=== PATIENT | female | born 1930 | race Caucasian/White ===

== ENCOUNTER 2017-05-16 21:05 | Inpatient (IN) ==
--- NOTE | 2017-05-16 21:52 | Emergency Department Report ---
GI Bleed HPI - General Chief complaint: GI Bleed Stated complaint: Rectal bleeding Time Seen by Provider: 05/16/17 21:21 Source: patient Mode of arrival: ambulatory Limitations: no limitations - History of Present Illness HPI Narrative: Pt presents with a c/o rectal bleeding for the last few hours. She reports a history of diverticulitis which she states causes her to have self limiting diarrhea about once a month. This evening shortly after supper pt developed diarrhea and after about 2 episodes noted blood in her stool and had a self limiting episode of low abd cramping. Pt states her stools then became nothing but bright red blood. She then had to put on an attends as the bleeding became spontaneous without warning. Pt reports 6 stools of nothing but blood MD complaint: blood on toilet paper, blood streaked stool, gross hematochezia Onset (ago): hour(s) Consistency: constant Severity: moderate Relieving factors: none Exacerbating factors: none Associated symptoms: abdominal pain Treatments Prior to Arrival: none - Related Data Home Medications Medication Instructions Recorded Confirmed Diclofenac Sodium 75 mg PO BID 05/16/17 05/16/17 Gabapentin [Neurontin] 1 tab PO BID 05/16/17 05/16/17 Levothyroxine Sodium 1 tab PO DAILY 05/16/17 05/16/17 Losartan [Cozaar] 1 tab PO DAILY 05/16/17 05/16/17 Omeprazole [Prilosec] 1 tab PO DAILY 05/16/17 05/16/17 Simvastatin [Zocor] 1 tab PO DAILY 05/16/17 05/16/17 Allergies Allergy/AdvReac Type Severity Reaction Status Date / Time Penicillins Allergy Verified 05/16/17 21:29 Sulfa (Sulfonamide Allergy Verified 05/16/17 21:29 Antibiotics) Review of Systems All systems: reviewed and negative except as stated Constitutional: Denies: fever, chills, weakness Cardiovascular: Reports: edema. Denies: chest pain, palpitations Respiratory: Denies: cough Gastrointestinal: Reports: abdominal pain, diarrhea. Denies: nausea, vomiting Genitourinary: Denies: urgency Musculoskeletal: Denies: back pain Neurological: Denies: headache, weakness Psychiatric: Denies: anxiety PFSH Patient Stated Medical History Hypertension Yes Gastroesophageal Reflux Yes Disease Other GI Yes: diverticulitis Osteoarthritis Yes Physical Exam - Limitations Limitations: no limitations - General General appearance: alert, in no apparent distress - Normal Exams: Neck:: Full range of motion, without adenopathy Chest/Respirations:: Clear all fernández, with good airflow Cardiovascular:: Regular rate and rhythm, without murmur or gallop Abdomen:: Bowel sounds positive, soft, non-tender, non-distended Musculoskeletal:: No tenderness, or deformity noted, good range of motion, all extremities Integumentary:: No rashes, hives, or bruising noted Neurological:: Patient is alert, and oriented Psychiatric:: Patient exhibits, appropriate attention, emotion and affect Course Vital Signs Temperature 98.2 F 05/16/17 21:11 Pulse Rate 116 H 05/16/17 21:11 Respiratory Rate 20 05/16/17 21:11 Blood Pressure 170/87 H 05/16/17 21:11 Pulse Oximetry 99 05/16/17 21:11 Temperature 98.2 F 05/16/17 21:11 Pulse Rate 84 05/16/17 23:45 Respiratory Rate 18 05/16/17 23:45 Blood Pressure 145/65 H 05/16/17 23:45 Pulse Oximetry 94 05/16/17 23:45 GI Bleed - MDM Narrative Medical decision making narrative: Pt has obvious rach rectal bleeding. Labs and CT reviewed. Assessment and diagnostic findings discussed with Dr Mcallister and then Dr Toussaint for admission. All findings discussed with pt and family, questions answered. Pt admitted inpatient for acute GI bleed - Differential Diagnosis Likely: hemorrhoids, gastritis, Upper gastrointestinal hemorrhage, Lower gastrointestinal hemorrhage - Lab Data Attestation: I reviewed the patient's lab results. Result diagrams: 05/16/17 21:56 05/16/17 21:56 Lab Results 05/16/17 05/16/17 05/16/17 Range/Units 21:56 21:56 22:57 WBC 10.3 (4.5-11.0) T/MM3 RBC 3.75 L (4.00-5.20) M/MM3 Hgb 11.0 L (12-16) GM/DL Hct 34.5 L (36-46) % MCV 92.0 (80-100) UM3 MCH 29.3 (26-34) UUG MCHC 31.9 (31-37) GM/DL RDW Std Deviation 53.8 H (36.9-50.2) FL Plt Count 380 (130-400) T/MM3 MPV 9.1 L (9.4-12.4) UM3 Immature Gran % (Auto) 0.8 H (0.0-0.5) % Neut % (Auto) 66.1 H (33-66) % Lymph % (Auto) 25.0 (23-45) % Dickey % (Auto) 6.5 (0-9.0) % Eos % (Auto) 1.2 (0-4) % Baso % (Auto) 0.4 (0-2) % Neut # (Auto) 6.8 (1.8-7.7) T/MM3 Lymph # (Auto) 2.6 (1-4.8) T/MM3 Dickey # (Auto) 0.7 (0-0.8) T/MM3 Eos # (Auto) 0.1 (0-0.5) T/MM3 Baso # (Auto) 0.0 (0-0.2) T/MM3 Abs Immat Gran (auto) 0.08 H (0.00-0.03) T/MM3 Turbidity < 20 (0-20) Sodium 141 (134-144) MEQ/L Potassium 4.0 (3.6-5) MEQ/L Chloride 107 (98-107) MEQ/L Carbon Dioxide 23 (22-30) MEQ/L Anion Gap 11 (5-15) MEQ/L BUN 13.0 (7-17) MG/DL Creatinine 0.7 (0.7-1.2) MG/DL GFR Calculation 80 BUN/Creatinine Ratio 19 (6-26) RATIO Glucose 169 H (65-110) MG/DL Calculated Osmolality 275 (261-280) MOSM/KG Calcium 9.3 (8.4-10.2) MG/DL Total Bilirubin 0.20 (0.20-1.30) MG/DL Conjugated Bilirubin 0.00 (0.00-0.30) MG/DL Unconjugated Bilirubin 0.00 (0.00-1.1) MG/DL Icterus Index < 2 (0-7) AST 24 (14-36) U/L ALT 35 (9-52) U/L Alkaline Phosphatase 69 (38-126) U/L Total Protein 7.1 (6.3-8.2) G/DL Albumin 4.1 (3.5-5.0) G/DL Globulin 3.0 (2.4-3.6) G/DL Albumin/Globulin Ratio 1.4 (1.1-2.2) RATIO Specimen Hemolysis < 15 (0-25) Stool Occult Blood Positive A - Radiology Data Attestation: I reviewed the patient's radiology results. (Ct results per V Rad) Disposition Clinical Impression: GI bleed Qualifiers: GI bleed type/associated pathology: diverticulosis Qualified Code(s): K57.91 - Diverticulosis of intestine, part unspecified, without perforation or abscess with bleeding Disposition: 02 To [facility] [place] Acute Care Condition: Improved Time of Disposition: 00:52 - Seen By: midlevel
[2017-05-16] MEDS ORDERED: NS 100 ML ONE (22:09)
[2017-05-16] MEDS ORDERED: SALINE FLUSH 10ml SYRINGE ONE (22:09)
[2017-05-16] MEDS ORDERED: IOHEXOL 300mg/ml 100ml INJECTION ONE (22:09)
--- NOTE | 2017-05-17 01:02 | History & Physical Report ---
<Krishna Toussaint - Last Filed: 05/17/17 02:15> History of Present Illness Date: 05/17/17 Chief complaint: BRBPR, diarrhea HPI: Ms Boyd is an 86 y/o w/ h/o hypothyroidism, GERD, HLD and diverticular disease with montly bouts of self-limited "diverticulitis" who presents to ED at [facility] [place] w/ chief concern of bloody diarrhea that started last night after dinner. Patient states that she was feeling "fine" yesterday however after dinner she had some slight lower abdominal pain and then some loose stools. She states she thought this was consistent w/ what she has intermittently which normally resolves spontaneously however this time she continued to have diarrhea and then noted blood in the stool and then had a primarily bloody stools from that point on. Her abdominal pain resolved, and she denies n/v and denies f/c/s. She denies cough, soa, dyspnea, TURNER, sore throat and chest pain. She states that she has no prior h/o GI bleeding so she decided to come to the ER. In the ED, patient had one episode of blood in her stool, and per ER provider UYEN did not reveal internal rectal/external hemorrhoids. CT scan showed diverticulosis but not diverticulitis and showed no other acute process per prelim report. Patient's hgb was 11 and her WBC was 10.3. She was starte on IVFs and Dr. Mcallister was contacted and he requested the patient be admitted to the hospitalist service and he will consult in the AM. Patient admitted to the Hospitalist service for further evaluation and management. Review of Systems All systems PM: 10-point ROS was reviewed, no additional remarkable complaints except (as noted in the HPI) PFSH Past medical hx: Hypothyroidism HLD GERD Diverticular disease w/ intermittent bouts of "diverticulitis" that resolve spontaneously Colonoscopy in [place] about 5 years ago OA HTN Family History: Patient's mother secondary to complications of Colon Ca at age 75. Patient's sister 92 and healthy. - Social History Smoking status: Never smoker Substance use type: does not use Alcohol intake: never Medications Home Medications Medication Instructions Recorded Confirmed Type Diclofenac Sodium 75 mg PO BID 05/16/17 05/16/17 History Gabapentin [Neurontin] 1 tab PO BID 05/16/17 05/16/17 History Levothyroxine Sodium 1 tab PO DAILY 05/16/17 05/16/17 History Losartan [Cozaar] 1 tab PO DAILY 05/16/17 05/16/17 History Omeprazole [Prilosec] 1 tab PO DAILY 05/16/17 05/16/17 History Simvastatin [Zocor] 1 tab PO DAILY 05/16/17 05/16/17 History Allergies Allergy/AdvReac Type Severity Reaction Status Date / Time Penicillins Allergy Verified 05/16/17 21:29 Sulfa (Sulfonamide Allergy Verified 05/16/17 21:29 Antibiotics) Exam Vital Signs: Temperature 98.2 F 05/16/17 21:11 Pulse Rate 84 05/16/17 23:45 Respiratory Rate 18 05/16/17 23:45 Blood Pressure 145/65 H 05/16/17 23:45 Pulse Oximetry 94 05/16/17 23:45 Telemetry Rhythm: Sinus Rhythm - Constitutional Present: no acute distress, well nourished, well developed - Routine HEENT Exam Head: Present: normocephalic, atraumatic Eye: Present: EOMI, PERRL. Absent: conjunctival icterus, scleral injection ENT: Present: mucous membranes moist - Routine Neck Exam Present: supple, full ROM. Absent: JVD - Routine Respiratory Exam Present: CTA bilaterally. Absent: accessory muscle use, dyspnea, respiratory distress - Routine Cardiovascular Exam Present: RRR - Routine Abdominal Exam Present: soft, normoactive bowel sounds, non distended. Absent: tenderness - Routine Rectal Exam Patient deferred: visual exam - Routine Skin Exam Present: intact, dry. Absent: pallor, mottling, petechiae - Routine Neurological Exam Present: alert, oriented X3, CN II-XII intact. Absent: sensory deficit, motor deficit - Routine Psychiatric Exam Present: normal affect, normal thought process Results - Labs CBC & Chem 7: 05/16/17 21:56 05/16/17 21:56 Assessment and Plan DVT Prophylaxis: SCD's GI Prophylaxis: Protonix Resuscitation Status: Full Code Assessment and Plan: Assessment: 1) Acute Lower GI bleed w/ diarrhea w/ h/o diverticular disease 2) HTN 3) Hypothyroidism 4) HLD 5) GERD Plan: Admit to Hospitalist service on Surgical unit Consult Dr. Mcallister Repeat labs - CBC, renal panel at 0400 today and monitor serial Hgb UA pending NPO except sips/ice chips sparingly IVFs that of NS at 100 cc / hour Hold losartan and monitor BP, may need to restart Protonix IV 40mg q 24 hours (hold po Prilosec) Hold Diclofenac and simvastatin SCDs Supportive Care I discussed the plan of care w/ the patient and the patient verbalized understanding and agreement. Hospital Course Summary Disclaimer: The visit summary below is not to be considered part of the above Progress Note. <Pippa Durant - Last Filed: 05/17/17 12:26> History of Present Illness Date: 05/17/17 Exam Vital Signs: Temperature 97.3 F 05/17/17 07:18 Pulse Rate 106 H 05/17/17 10:42 Respiratory Rate 17 05/17/17 10:23 Blood Pressure 162/87 H 05/17/17 10:42 Pulse Oximetry 95 05/17/17 10:23 Height/Weight/BMI: Height 1.63 m Weight 65 kg Body Mass Index 24.6 Results - Labs CBC & Chem 7: 05/17/17 09:25 05/17/17 04:46 Assessment and Plan (1) GI bleed Problem details: Lower-likely diverticular Current visit: Yes Status: Acute GI Prophylaxis: Protonix Assessment and Plan: Dr. Toussaint's note reviewed. Mrs. Boyd interviewed and examined. CC: Rectal bleeding HPI: Ms Boyd is an 86 y/o female who presented to ED at [facility] w/ chief concern of bloody diarrhea that started last night after dinner yesterday evening. Patient states that she was feeling "fine" yesterday however after dinner she had some slight lower abdominal cramping pain and then some loose stools. She states she thought this was consistent w/ what she has intermittently which normally resolves spontaneously however this time she continued to have diarrhea and then noted bright red blood in the stool and then had a primarily bloody stools from that point on. She reports having 2 large bloody stools followed by 3-4 small stools before presenting to the emergency room. Her abdominal pain resolved, and she denies n/v and denies f/c/s. She denies cough , dyspnea, reflux, chest pain, or lightheadedness. She states that she has no prior h/o GI bleeding so she decided to come to the ER. In the ED, patient had one episode of blood in her stool, and per ER provider rectal exam did not reveal internal rectal/external hemorrhoids. CT scan showed diverticulosis but not diverticulitis and showed no other acute process per prelim report. Patient's hgb was 11 and her WBC was 10.3. She was started on IVFs and Dr. Mcallister was contacted and he requested the patient be admitted to the hospitalist service and he will consult in the AM. Last episode of bleeding was at 7:30 yesterday evening. Patient reports her last colonoscopy was approximate 5 years ago while she lived in [place] and she is not aware of any abnormalities but was told to repeat the colonoscopy in 3-4 years. PH/SH/FH: agree with that recorded above. Past surgeries include tonsillectomy, appendectomy, bilateral tubal ligation, left shoulder ORIF. Patient's primary care physician is Dr. Elgin Schaeffer, she would like her daughter and son to be alternate decision makers, and is a full code. ROS: 10 point review essentially negative other than episodes of diarrhea every 1-2 months and to past episodes of diverticulitis treated with oral antibiotics. Patient reports frequent UTIs but no current symptoms and arthritis primarily affecting the right knee which may require replacement in the near future. EXAM: General-NAD, alert, fluent speech, 162/87 standing, 154/67 supine; pulse 112 standing, 96 supine HEENT-PERRL, EOMI without nystagmus, conjunctiva mildly injected, sclera anicteric, conjugate gaze, facial structures symmetric, oropharynx clear, neck supple and without adenopathy Lungs-respirations nonlabored, good airflow, breath sounds clear Cardiac-regular cardiac rhythm, S1-S2, low-grade tachycardia Abd-soft, nontender, diminished bowel sounds Ext-without edema, mild soft tissue swelling at the right knee without erythema or warmth Skin-without rash or evidence of wounds Neuro-cranial nerves 3-12 intact, sensation intact to light touch 4 extremities , MAEW with mild proximal weakness Psych-calm, cooperative, oriented 3 DATA: Admission hemoglobin 11.0-dropped to 9.2 on follow-up 2, electrolytes/ creatinine/liver enzymes unremarkable. CT abdomen/pelvis reviewed by myself demonstrating surgical clips in the right axilla, gallstones without acute cholecystitis, diverticulosis without diverticulitis A/P: Acute lower GI bleed, likely diverticular Family history colon cancer Diverticulosis Blood loss anemia GERD Osteoarthritis Hypertension Hypothyroidism Hyperlipidemia Although patient reports normal colonoscopy 5 years ago she was advised to have it repeated in 3-4 years raising question of some abnormality that was identified. She clearly has diverticulosis and bleeding described as compatible with a diverticular bleed. Continue IV fluids and supportive care with serial hemoglobins. No upper symptoms described. Resume oral omeprazole. Discussed with Dr. Mcallister-may proceed with colonoscopy tomorrow. Clear liquids initiated. Type and screen to be obtained in the event transfusion becomes needed. Home medications resumed minus nonsteroidal and antihypertensive until hemodynamic stability clearly demonstrated. Hospital Course Summary Disclaimer: The visit summary below is not to be considered part of the above Progress Note.
[2017-05-17] MEDS ORDERED: PANTOPRAZOLE 40 MG INJECTION IVP SCH (01:18)
[2017-05-17 01:27] VITALS: BMI 24.6
[2017-05-17] MEDS: NS 1,000 ML IV SCH ×3 (02:04→22:47)
[2017-05-17] MEDS: GABAPENTIN 100 MG CAPSULE PO SCH ×2 (08:41→22:21)
[2017-05-17] MEDS: LEVOTHYROXINE 100 MCG TABLET PO SCH (08:41)
--- NOTE | 2017-05-17 10:06 | CT Scan Report ---
EXAM: CT abdomen pelvis w con DATE: 05/16/2017 12:00 AM ENCOUNTER: Initial INDICATION: hx diverticulitis, GI bleed COMPARISON: None available. TECHNIQUE: CT of the abdomen and pelvis with IV contrast. The patient received 89.3 mL of Omnipaque 300 without complication. Coronal and sagittal reformatted images were performed. The current CT scan was performed using radiation dose-reduction techniques. FINDINGS: Lower Chest: Mild atelectasis/scarring within the visualized portions of the lower lungs. No focal airspace disease. The heart is normal in size without pericardial effusion. Coronary arterial and thoracic aortic atherosclerotic calcifications. Postoperative changes of the right breast and right axillary lymph node dissection. Abdomen: No intraperitoneal free air. No intra-abdominal free fluid or fluid collections. No lymphadenopathy. Liver: The liver enhances homogeneously without focal masses. Gallbladder and biliary: Numerous stones within the gallbladder which appears otherwise normal. No biliary ductal dilatation. Spleen: The spleen appears normal. Pancreas: The pancreas demonstrates homogeneous attenuation. Adrenal glands: The adrenal glands are normal in size and attenuation. Kidneys/ureters: The kidneys appear normal. The ureters are normal in course and caliber. GI tract: Small hiatal hernia. The stomach appears otherwise normal. Small bowel loops are normal in caliber without evidence of obstruction. Colonic diverticulosis without associated inflammatory changes to suggest acute diverticulitis. Moderate colonic stool. The appendix is surgically absent by report. Vascular structures: The aorta is normal in course and caliber. The mesenteric arterial and venous structures appear patent. Pelvis: No pelvic free fluid. No pelvic lymphadenopathy. Calcified pelvic phleboliths. Bladder: The bladder appears normal. Genital system: The uterus and ovaries appear grossly normal. Skeletal structures and soft tissues: No acute osseous or soft tissue abnormality identified. Degenerative spondylosis of the visualized spine. IMPRESSION: 1. Colonic diverticulosis without associated inflammatory changes to suggest acute diverticulitis. 2. Moderate colonic stool raising consideration for constipation. 3. Cholelithiasis without imaging evidence of acute cholecystitis. The above report concurs with the preliminary report provided by Monaeo at 11:08 PM. .
--- NOTE | 2017-05-17 17:04 | General Surgery Consult Note ---
Consult date: 05/17/17 Attending Physician: Pippa Durant MD [facility] Medical History Updates: Hypothyroidism. Hyperlipidemia. GERD. Diverticular disease w/ intermittent bouts of "diverticulitis" that resolve spontaneously. OA. HTN. UTI - 04/24/2017 Surgical History: * Colonoscopy with polypectomy - 06/17/[address] Ephraim Polo. 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 * Colonoscopy - ~2005 in [place], [place]. * Left shoulder ORIF. * Tubal ligation. * Open right ovarian repair and incidental appendectomy. * Tonsillectomy Family History Updates: Mother: Colon cancer - age 75. 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 Medications Home Medications Medication Instructions Recorded Confirmed Type Diclofenac Sodium 75 mg PO BID 05/16/17 05/16/17 History Gabapentin [Neurontin] 1 tab PO BID 05/16/17 05/16/17 History Levothyroxine Sodium 1 tab PO DAILY 05/16/17 05/16/17 History Losartan [Cozaar] 1 tab PO DAILY 05/16/17 05/16/17 History Omeprazole [Prilosec] 1 tab PO DAILY 05/16/17 05/16/17 History Simvastatin [Zocor] 1 tab PO DAILY 05/16/17 05/16/17 History Allergies Allergy/AdvReac Type Severity Reaction Status Date / Time Penicillins Allergy Verified 05/16/17 21:29 Sulfa (Sulfonamide Allergy Verified 05/16/17 21:29 Antibiotics) Review of Systems 10-point ROS: negative except for HPI and the following: - Gastrointestinal Gastrointestinal: Present: diarrhea (every 3-4 weeks), blood in stools - Musculoskeletal Musculoskeletal: Present: joint pain (right knee, left shoulder) - Endocrine Endocrine: Present: thyroid problems - Vital Signs Last Vital Signs Temp 97.4 F 05/17/17 16:08 Pulse 75 05/17/17 16:08 Resp 18 05/17/17 16:08 BP 172/72 H 05/17/17 16:08 Pulse Ox 99 05/17/17 16:08 - Laboratory Result Diagrams: 05/17/17 15:47 05/17/17 04:46 Laboratory Tests 05/16/17 05/17/17 05/17/17 21:56 04:46 09:25 Hgb 11.0 L 9.2 L D 9.2 L 05/17/17 15:47 Hgb 8.9 L General Surgery Results - Results Labs: 05/17/17 15:47 05/17/17 04:46 Plan: PATIENT EDUCATION The rationale, details, risks, benefits, and expected pre-procedural and post- procedural course were discussed with the patient. The discussion included but was not limited to bleeding, perforation requiring surgical repair, missed lesions, aspiration, and complications from anesthesia. The risks of hemorrhoid banding was also discussed including delayed bleeding and infection. Hospital Course Summary Disclaimer: The visit summary below is not to be considered part of the above Progress Note.
[2017-05-17] MEDS ORDERED: Bisacodyl EC TAB 5 MG TABLET PO ONE (17:33)
--- NOTE | 2017-05-17 18:18 | Consultation ---
DATE OF CONSULTATION 05/17/2017 CONSULTING PHYSICIAN Mihcael Mcallister MD REQUESTING PHYSICIAN Dr. Krishna Toussaint REASON FOR CONSULTATION Lower GI bleed. IMPRESSION 1. Lower GI bleed of uncertain etiology. This could possibly be due to diverticular bleeding versus hemorrhoids. 2. Hypertension. 3. Hypothyroidism. 4. Hyperlipidemia. 5. Gastroesophageal reflux disease. RECOMMENDATIONS 1. Continue to follow serial hemoglobins. 2. INR has been ordered for the morning. 3. I did discuss colonoscopy with Donna and her daughter. I also mentioned the possibility of anoscopy with possible hemorrhoid banding. They did agree that colonoscopy and possible hemorrhoid banding would be appropriate. 4. Bowel prep this evening. 5. N.P.O. at midnight. HISTORY OF PRESENT ILLNESS Donna is an 86-year-old female patient of Dr. Deonte Schaeffer who is a resident of [facility] in the [facility]. Around 7:30 last evening she had her third bowel movement of the day. She thought she heard a popping sound and then noticed a gush of blood. She went back to the bathroom shortly afterwards and passed more blood. She had three of four more times that she passed smaller amounts of blood that evening. She did present to the emergency department and had some ongoing bleeding in the emergency department. She did have a bowel movement this afternoon which showed a slight amount of blood mixed with the stool. She has not had any other bleeding today. She does report an increase in flatus but that has been better since her bowel movement this afternoon. She said that she was having 1-2 out of 10 in severity cramping across her lower abdomen. This has also improved. PAST MEDICAL HISTORY, PAST SURGICAL HISTORY, ALLERGIES, MEDICATIONS, SOCIAL HISTORY, FAMILY HISTORY, REVIEW OF SYSTEMS, LABORATORY DATA See electronic consultation note. PHYSICAL EXAMINATION VITAL SIGNS: See electronic consultation note. GENERAL: The patient is awake, alert, in no acute distress. HEENT: Sclerae clear. Extraocular muscles intact. NECK: Supple with a midline trachea. No lymphadenopathy or thyromegaly are noted. HEART: Regular rate and rhythm. LUNGS: Clear to auscultation bilaterally. ABDOMEN: Soft, nontender, nondistended. There are no masses, fluid, organomegaly, guarding or rebound noted. EXTREMITIES: No clubbing, cyanosis or edema. NEUROLOGIC: Cranial nerves II-XII are grossly intact. PSYCHIATRIC: Normal mood and affect. Thank you for allowing me to participate in [facility]'s care. CHRISTIANO
[2017-05-17] MEDS ORDERED: POLYETHYL. GLYCOL 3350 BOTTLE 238 GM PO ONE (19:00)
[2017-05-17] MEDS ORDERED: ONDANSETRON 4 MG/2 ML INJECTION IVP PRN (21:27)
[2017-05-17] MEDS: SIMVASTATIN 40 MG TABLET PO SCH (22:22)
[2017-05-18] MEDS: OMEPRAZOLE 20 MG CAPSULE PO SCH (05:32)
[2017-05-18] MEDS: LEVOTHYROXINE 100 MCG TABLET PO SCH (05:32)
[2017-05-18] MEDS: FLEET PHOSPHO - SODA ENEMA 133ml PR PRN ×3 (06:09→07:12)
--- NOTE | 2017-05-18 06:56 | Anesthesia Preoperative Report ---
Anesthesia Preoperative Record - Date and Time Date: 05/18/17 Preoperative Diagnosis: Lower GI Bleed Proposed Procedure: GI Bleed NPO Since Date: 05/18/17 NPO Since Time: 00:00 Allergies/Adverse Reactions: Allergies Allergy/AdvReac Type Severity Reaction Status Date / Time Penicillins Allergy Verified 05/16/17 21:29 Sulfa (Sulfonamide Allergy Verified 05/16/17 21:29 Antibiotics) - Vital Signs Vital Signs: Temperature 97.8 F 05/18/17 06:51 Pulse Rate 97 05/18/17 06:51 Respiratory Rate 19 05/18/17 06:51 Blood Pressure 179/75 H 05/18/17 06:51 Pulse Oximetry 97 05/18/17 06:51 Height and Weight: Height 5 ft 4 in Weight 65 kg Body Mass Index 24.6 - Medications Inpatient Medications: Current Medications Gabapentin (Neurontin) 100 mg PO BID [facility] Last Admin: 05/17/17 22:21 Dose: Not Given Sodium Chloride (Normal Saline) 1,000 mls @ 100 mls/hr IV .Q10H [facility] Last Infusion: 05/18/17 05:32 Dose: 100 mls/hr Levothyroxine Sodium (Synthroid) 100 mcg PO ACB [facility] Last Admin: 05/18/17 05:32 Dose: Not Given Omeprazole (Prilosec) 20 mg PO ACB [facility] Last Admin: 05/18/17 05:32 Dose: Not Given Ondansetron HCl (Zofran) 4 mg IVP Q6H PRN PRN Reason: Nausea &/or vomiting Last Admin: 05/17/17 21:30 Dose: 4 mg Simvastatin (Zocor) 40 mg PO HS [facility] Last Admin: 05/17/17 22:22 Dose: Not Given Sodium Phosphate (Fleet Enema) 1 enema [place] PRN PRN Last Admin: 05/18/17 06:52 Dose: 1 enema Home Medications: Home Medications Medication Instructions Recorded Confirmed Type Diclofenac Sodium 75 mg PO BID 05/16/17 05/16/17 History Gabapentin [Neurontin] 1 tab PO BID 05/16/17 05/16/17 History Levothyroxine Sodium 1 tab PO DAILY 05/16/17 05/16/17 History Losartan [Cozaar] 1 tab PO DAILY 05/16/17 05/16/17 History Omeprazole [Prilosec] 1 tab PO DAILY 05/16/17 05/16/17 History Simvastatin [Zocor] 1 tab PO DAILY 05/16/17 05/16/17 History Is Patient on Beta Earl?: No - Medical History Respiratory: DENIES: Asthma, Bronchitis, Chronic Obstructive Pulmonary Disease (COPD), Dyspnea, Orthopnea, Pulmonary Embolism, Pneumonia, Upper Respiratory Infection, Pulmonary Edema, Sleep Apnea, Tuberculosis, Other Cardiovascular: Reports: Hypertension Gastrointestional: Reports: Gastroesophageal Reflux Disease (well controlled with meds), Gastrointestinal Bleeding (currently) Neuro/Musculoskeletal: Denies: HX.MS.OSAR, Back Problems, Cerebrovascular Accident, Depression, Headaches, Loss of Consciousness, Muscle Weakness, Neuromuscular Disorder, Paralysis, Paresthesia, Syncope, Seizures, Other Renal/Endocrine: Reports: Thyroid Disease (hypo) - Surgical History HEENT Surgeries: Reports: Tonsillectomy GI Surgery/Treatments: Reports: Appendectomy Musculoskeletal Surgery/Tx: Reports: Shoulder Arthroscopy Reproductive Surgery/Treatment: Reports: Tubal Ligation Anesthesia Reactions: None Hx Family Anesthesia Reaction: No History of Motion Sickness: No - Social History Smoking Status: Never smoker Substance Use Type: does not use Alcohol Intake Frequency: does not drink - Pertinent Findings Laboratory: CBC and BMP 05/18/17 04:28 05/18/17 04:28 BMP 05/18/17 04:28 Sodium 140 Potassium 3.4 L Chloride 110 H Carbon Dioxide 22 BUN 4.0 L D Creatinine 0.5 L Glucose 93 Calcium 8.6 Liver Function 05/18/17 Range/Units 04:28 Albumin 3.4 L (3.5-5.0) G/DL EKG: Sinus Rhythm EKG Ectopy: PAC - Physical Exam Respiratory Exam: Present: lungs clear, bilateral breath sounds equal Cardiovascular Exam: Present: regular rate and rhythm, no murmur - Airway Assessment Mallampati Score: III TMD: 2 Fingerbreadths Neck Extension: fair Overall Assessment: may be difficult intubation - ASA ASA Score: 2 - Plan Anesthesia: General TIVA - Discussion Discussion: Discussed risks/options/alternatives of anesthesia and questions answered. Patient consents. Nursing pain assessment noted. Present for Discussion: other (none) Attestation Statement: Prior to the delivery of any anesthetic medication, I examined the patient, developed the plan, obtained the patient's consent and discussed the risk and benefits of the procedure with the patient/guardian. - Additional Information Seen by Anesthesia: Yes
[2017-05-18] MEDS ORDERED: NS 1,000 ML IV SCH (07:15)
--- NOTE | 2017-05-18 08:07 | General Surgery Procedure Note ---
Date of Procedure: 05/18/17 Surgeon: Esvin Anesthesia: General TIVA ASA Score: 2 Postoperative Diagnosis: Severe sigmoid diverticulosis. Lower GI bleed - most likely diverticular in origin - no active bleeding. Possible mild sigmoid colitis. Mild internal hemorrhoids Procedure: Total colonoscopy with biopsies of sigmoid colon
[2017-05-18] MEDS ORDERED: PROPOFOL 500 MG/50 ML VIAL IV ONE (08:11)
--- NOTE | 2017-05-18 08:43 | Anesthesia Postoperative Note ---
- Date and Time Date: 05/18/17 Time: 08:40 - Status Patient Participated in Evaluation: Patient Participated in Person Vital Signs: Temperature 97.5 F 05/18/17 08:09 Pulse Rate 80 05/18/17 08:40 Respiratory Rate 21 05/18/17 08:40 Blood Pressure 125/60 05/18/17 08:40 Pulse Oximetry 95 05/18/17 08:40 Respiratory Function: Airway Patent, Regular Respirations Cardiovascular Function: Regular Pulse Mental Status: Alert and Oriented Pain Intensity: 0 Hydration: IV Infusing Complications During Recover: None Apparent - Follow-Up Instructions Instructions: Per Surgeon
[2017-05-18] MEDS: GABAPENTIN 100 MG CAPSULE PO SCH ×2 (11:01→21:24)
--- NOTE | 2017-05-18 11:23 | Progress Note ---
<Laura Bautista - Last Filed: 05/18/17 11:19> Subjective: Donna is seen today in follow up for her recent GI bleed and anemia. She is seen while resting in her room and reports that she is very tired since she hasn 't gotten much sleep in the past 2 days. She underwent colonoscopy this morning by Dr. Mcallister which revealed severe sigmoid diverticulosis and mild sigmoid colitis. She complains of rectal discomfort now which she believes is secondary to all her recent bowel movements and bowel prep. She denies any fevers, chills, chest pain, shortness of breath, abdominal pain or dysuria. She states she is tolerating clear liquid diet well and denies any nausea or vomiting. Review of medical records indicates that she has been hypertensive. She has a history of hypertension and her Losartan was placed on hold on admission. Labs today revealed new hypokalemia with potassium at 3.4. Slight decrease in hemoglobin today at 9.1 as compared to yesterday at 10.4. Objective Vital signs: Temperature 98.1 F 05/18/17 09:00 Pulse Rate 86 05/18/17 10:44 Respiratory Rate 21 05/18/17 09:15 Blood Pressure 152/68 H 05/18/17 10:44 Pulse Oximetry 96 05/18/17 10:15 Rhythm: Normal Sinus Rhythm Height/Weight/BMI: Height 5 ft 4 in Weight 144 lb 9.972 oz Body Mass Index 24.6 - Constitutional Present: no acute distress, well nourished, well developed, cooperative - Routine HEENT Exam Head: Present: normocephalic, atraumatic Eye: Present: PERRL. Absent: conjunctival icterus ENT: Present: mucous membranes moist, dentition normal - Routine Respiratory Exam Present: CTA bilaterally. Absent: rhonchi, stridor, wheezes - Routine Cardiovascular Exam Present: RRR, S1, S2 - Routine Abdominal Exam Present: soft, normoactive bowel sounds, non distended, non tender. Absent: guarding - Routine Extremities Exam Present: no edema, non tender, pulses intact - Routine Back/Spine/Pelvis Exam Back/Spine: Present: full ROM - Routine Musculoskeletal Exam Musculoskeletal: Present: moving extremities well - Routine Skin Exam Present: dry, warm. Absent: jaundice Comments: afebrile. - Routine Neurological Exam Present: alert, oriented X3, moving all extremities, vision grossly intact, normal speech. Absent: facial asymmetry - Routine Lymphatic Exam Lymphatic: Absent: lymphedema - Routine Psychiatric Exam Present: cooperative Results - Labs CBC & Chem 7: 05/18/17 04:28 05/18/17 04:28 - Impressions 05/18/17- Colonoscopy by Dr. Mcallister - severe sigmoid diverticulosis with mild sigmoid colitis; no active bleeding. Assessment and Plan (1) GI bleed Problem details: Lower-likely diverticular Current visit: Yes Status: Acute DVT Prophylaxis: SCD's GI Prophylaxis: other (Priolsec) Resuscitation Status: Full Code Assessment and Plan: Assessment Acute lower GI bleed, likely diverticular, acute. Family history colon cancer. Blood loss anemia, acute. Diverticulosis, chronic. GERD, chronic. Osteoarthritis, chronic. Hypertension, chronic. Hypothyroidism, chronic. Hyperlipidemia, chronic. Plan Patient underwent colonoscopy by Dr. Mcallister today (05/18/17) which revealed severe sigmoid diverticulosis with mild sigmoid colitis and no active bleeding. Diverticula most likely cause of lower GI bleed. Slight decrease in hemoglobin at 9.1 (as compared to 05/17 at 10.4). Patient is asymptomatic. Will continue to monitor blood counts and repeat CBC in AM. BMP revealed new hypokalemia (K 3.4). Will given KCl 40 mEq po now and recheck BMP in AM. Continue to monitor closely on telemetry. Encourage incentive spirometry for pulmonary toileting and SCDs for DVT prophylaxis. Hypertension noted with blood pressure 152/68. Losartan held on admission. Will resume home losartan and continue to monitor blood pressure closely. Continue to hold diclofenac in light of recent bleeding. Continue NS 50cc/hr as oral intake is still minimal. Patient is tolerating clear liquid diet. Rectal discomfort most likely secondary to bowel prep. A&D ointment as needed. Consider advancing as tolerated. Anticipate discharge in near future, hopefully 05/20/17. - Time spent with patient Time with patient PN: 35 minutes Hospital Course Summary Disclaimer: The visit summary below is not to be considered part of the above Progress Note. Hospital Course: 05/17/17-Admission. Dr. Toussaint's note reviewed. Mrs. Boyd interviewed and examined. CC: Rectal bleeding HPI: Ms Boyd is an 86 y/o female who presented to ED at [facility] w/ chief concern of bloody diarrhea that started last night after dinner yesterday evening. Patient states that she was feeling "fine" yesterday however after dinner she had some slight lower abdominal cramping pain and then some loose stools. She states she thought this was consistent w/ what she has intermittently which normally resolves spontaneously however this time she continued to have diarrhea and then noted bright red blood in the stool and then had a primarily bloody stools from that point on. She reports having 2 large bloody stools followed by 3-4 small stools before presenting to the emergency room. Her abdominal pain resolved, and she denies n/v and denies f/c/s. She denies cough , dyspnea, reflux, chest pain, or lightheadedness. She states that she has no prior h/o GI bleeding so she decided to come to the ER. In the ED, patient had one episode of blood in her stool, and per ER provider rectal exam did not reveal internal rectal/external hemorrhoids. CT scan showed diverticulosis but not diverticulitis and showed no other acute process per prelim report. Patient's hgb was 11 and her WBC was 10.3. She was started on IVFs and Dr. Mcallister was contacted and he requested the patient be admitted to the hospitalist service and he will consult in the AM. Last episode of bleeding was at 7:30 yesterday evening. Patient reports her last colonoscopy was approximate 5 years ago while she lived in [place] and she is not aware of any abnormalities but was told to repeat the colonoscopy in 3-4 years. PH/SH/FH: agree with that recorded above. Past surgeries include tonsillectomy, appendectomy, bilateral tubal ligation, left shoulder ORIF. Patient's primary care physician is Dr. Elgin Schaeffer, she would like her daughter and son to be alternate decision makers, and is a full code. ROS: 10 point review essentially negative other than episodes of diarrhea every 1-2 months and to past episodes of diverticulitis treated with oral antibiotics. Patient reports frequent UTIs but no current symptoms and arthritis primarily affecting the right knee which may require replacement in the near future. EXAM: General-NAD, alert, fluent speech, 162/87 standing, 154/67 supine; pulse 112 standing, 96 supine HEENT-PERRL, EOMI without nystagmus, conjunctiva mildly injected, sclera anicteric, conjugate gaze, facial structures symmetric, oropharynx clear, neck supple and without adenopathy Lungs-respirations nonlabored, good airflow, breath sounds clear Cardiac-regular cardiac rhythm, S1-S2, low-grade tachycardia Abd-soft, nontender, diminished bowel sounds Ext-without edema, mild soft tissue swelling at the right knee without erythema or warmth Skin-without rash or evidence of wounds Neuro-cranial nerves 3-12 intact, sensation intact to light touch 4 extremities , MAEW with mild proximal weakness Psych-calm, cooperative, oriented 3 DATA: Admission hemoglobin 11.0-dropped to 9.2 on follow-up 2, electrolytes/ creatinine/liver enzymes unremarkable. CT abdomen/pelvis reviewed by myself demonstrating surgical clips in the right axilla, gallstones without acute cholecystitis, diverticulosis without diverticulitis A/P: Acute lower GI bleed, likely diverticular Family history colon cancer Diverticulosis Blood loss anemia GERD Osteoarthritis Hypertension Hypothyroidism Hyperlipidemia Although patient reports normal colonoscopy 5 years ago she was advised to have it repeated in 3-4 years raising question of some abnormality that was identified. She clearly has diverticulosis and bleeding described as compatible with a diverticular bleed. Continue IV fluids and supportive care with serial hemoglobins. No upper symptoms described. Resume oral omeprazole. Discussed with Dr. Mcallister-may proceed with colonoscopy tomorrow. Clear liquids initiated. Type and screen to be obtained in the event transfusion becomes needed. Home medications resumed minus nonsteroidal and antihypertensive until hemodynamic stability clearly demonstrated. Plan Patient underwent colonoscopy by Dr. Mcallister today (05/18/17) which revealed severe sigmoid diverticulosis with mild sigmoid colitis and no active bleeding. Diverticula most likely cause of lower GI bleed. Slight decrease in hemoglobin at 9.1 (as compared to 05/17 at 10.4). Patient is asymptomatic. Will continue to monitor blood counts and repeat CBC in AM. BMP revealed new hypokalemia (K 3.4). Will given KCl 40 mEq po now and recheck BMP in AM. Continue to monitor closely on telemetry. Encourage incentive spirometry for pulmonary toileting and SCDs for DVT prophylaxis. Hypertension noted with blood pressure 152/68. Losartan held on admission. Will resume home losartan and continue to monitor blood pressure closely. Continue to hold diclofenac in light of recent bleeding. Continue NS 50cc/hr as oral intake is still minimal. Patient is tolerating clear liquid diet. Rectal discomfort most likely secondary to bowel prep. A&D ointment as needed. Consider advancing as tolerated. Anticipate discharge in near future, hopefully 05/20/17. <Pippa Durant - Last Filed: 05/18/17 15:30> Objective Vital signs: Temperature 98.1 F 05/18/17 09:00 Pulse Rate 73 05/18/17 13:55 Respiratory Rate 15 05/18/17 12:45 Blood Pressure 130/60 05/18/17 12:30 Pulse Oximetry 96 05/18/17 12:45 Height/Weight/BMI: Height 1.63 m Weight 65.6 kg Body Mass Index 24.6 Results - Labs CBC & Chem 7: 05/18/17 04:28 05/18/17 04:28 Assessment and Plan (1) GI bleed Problem details: Lower-likely diverticular Current visit: Yes Status: Acute Assessment and Plan: I have independently evaluated and examined this patient. I reviewed the chart, the patient's history, and the RECREATIONAL THERAPY TECHNICIAN/PA's documented findings as above. We discussed and formulated the assessment and plan as above with additions as below: Mrs. Boyd was resting comfortably when seen. She tolerated clear liquids at lunch and denied nausea, vomiting, or reflux. She's had no further rectal bleeding since the evening of admission. Hemoglobin has remained relatively stable. She denies lightheadedness. Respirations are nonlabored with clear breath sounds Cardiac rhythm regular without tachycardia Abdomen benign, no focal tenderness, bowel sounds present Results of colonoscopy discussed with Dr. Mcallister-advance diet as tolerated. Repeat hemoglobin this afternoon and in a.m. Provided remains hemodynamically stable and tolerates advancing to regular diet , anticipate discharge tomorrow. Hospital Course Summary Disclaimer: The visit summary below is not to be considered part of the above Progress Note.
[2017-05-18] MEDS: LOSARTAN 100 MG TABLET PO SCH (12:58)
--- NOTE | 2017-05-18 19:25 | Operative Note ---
DATE OF OPERATION 05/18/2017 SURGEON Michael Mcallister MD PREOPERATIVE DIAGNOSIS 1. Lower GI bleed. 2. Personal history of adenomatous colon polyp. 3. Family history of colon cancer in her mother. POSTOPERATIVE DIAGNOSES 1. Lower GI bleed likely secondary to diverticular bleeding - no active bleeding. 2. Severe sigmoid diverticulosis. 3. Possible mild sigmoid colitis. 4. Mild internal hemorrhoids. PROCEDURE Total colonoscopy with biopsies of the sigmoid colon for histology. ANESTHESIA TIVA ASA Class 2 INDICATIONS The patient is an 86-year-old female who was admitted to the hospital for lower GI bleeding. She had last had a colonoscopy in June 2011 that did include removal of a tubular adenoma. Given her history of the polyp and a family history of colon cancer in combination with her lower GI bleeding, a colonoscopy was recommended. FINDINGS The colon did show significant sigmoid diverticulosis without any definite evidence of diverticulitis. There was some possible mild colitis in the region of the sigmoid colon. There were mild internal hemorrhoids. There was some old blood within the region of the sigmoid colon and even one small clot but there was no evidence of active bleeding. There was no neoplasia or angiodysplasia noted. DESCRIPTION OF PROCEDURE After informed consent was obtained the patient was taken to the endoscopy suite and placed in a left lateral decubitus position. IV anesthesia was administered by the anesthesia team. A digital rectal exam was performed and was normal externally. No palpable masses were noted. The patient had received a MiraLAX/Dulcolax bowel prep the day prior. She also received some Fleet's enemas to help complete her bowel prep this morning. An Olympus video colonoscope with an AmplifEYE device was inserted and retroflexed to examine the distal rectum. There was mild internal hemorrhoidal tissue noted but no significant internal hemorrhoids that would be amenable to hemorrhoid banding. The scope was returned to a neutral position. It was advanced up to the level of the sigmoid colon which was tortuous and contained numerous diverticula. There was some possible colitis so a few biopsies were taken and were sent to Pathology for analysis. The scope was advanced further to the level of the cecum. The cecum was reached without difficulty. The cecum was identified by the appendiceal orifice and ileocecal valve. The scope was slowly withdrawn, examining the mucosa circumferentially. No other abnormalities were noted. The bowel prep was very good with minimal residual liquid contents of the colon that were able to be evacuated via the colonoscope. Some of the contents of the colon did appear blood-tinged but there was no active bleeding. Upon reaching the rectum the carbon dioxide insufflation was evacuated and the scope was removed. RECOMMENDATIONS 1. High-fiber diet with a daily fiber supplement to try to prevent problems with her diverticulosis and hemorrhoids. 2. Given her age and lack of polyps on this study, I doubt that repeat colonoscopy will be necessary. 3. Advance diet and dismiss from the hospital when hemoglobin is stable. MTDD
[2017-05-18] MEDS: SIMVASTATIN 40 MG TABLET PO SCH (21:23)
[2017-05-19] MEDS: LEVOTHYROXINE 100 MCG TABLET PO SCH (06:31)
[2017-05-19] MEDS: OMEPRAZOLE 20 MG CAPSULE PO SCH (06:31)
[2017-05-19] MEDS: LOSARTAN 100 MG TABLET PO SCH (08:11)
[2017-05-19] MEDS: GABAPENTIN 100 MG CAPSULE PO SCH (08:11)
[2017-05-19 09:07] VITALS: TEMP 97.8
[2017-05-19 13:36] VITALS: BP 135/61
--- NOTE | 2017-05-19 15:13 | Discharge Instructions ---
Discharge Plan - [facility] Rec/Dispo Referrals/Follow Up: Adelaida Schaeffer MD [Family Provider] - 1 Week Erika Instructions: Gastrointestinal Bleeding (DC), Colonoscopy (DC), Rectal Bleeding (DC) Prescriptions: New Ferrous Sulfate 325 mg PO DAILY #100 tab Continue Losartan [Cozaar] 1 tab PO DAILY Diclofenac Sodium 75 mg PO BID Simvastatin [Zocor] 1 tab PO DAILY Levothyroxine Sodium 1 tab PO DAILY Gabapentin [Neurontin] 1 tab PO BID Omeprazole [Prilosec] 1 tab PO DAILY Discharge Instructions/Outpatient Orders: Provider Discharge Instructions Location: Determined By Patient - Disposition 01 Discharged Home, Self-Care
[2017-05-19 15:14] VITALS: RESP 39; O2SAT 94
--- NOTE | 2017-05-19 16:41 | Discharge Summary ---
Discharge Information Date of admission: 05/17/17 00:35 Anticipated date of discharge: 05/19/17 Attending Physician: Pippa Durant MD Primary care physician: Adelaida Schaeffer MD Consults: Dr. Michael Mcallister - Discharge Diagnosis (1) GI bleed Status: Acute Discharge Diagnosis: Acute lower GI bleed due to diverticulitis - Procedures Procedures: Colonoscopy on 05/18/17 demonstratin. Lower GI bleed likely secondary to diverticular bleeding - no active bleeding. 2. Severe sigmoid diverticulosis. 3. Possible mild sigmoid colitis. 4. Mild internal hemorrhoids. - Laboratory Labs: On admission white count was 10.3 with hemoglobin 11.0. 6 hours later hemoglobin dropped to 9.2 with slow drop to discharge value of 8.3. Admission chemistries were unremarkable other than elevated glucose of 169. One Hemoccult was positive. 05/19/17 04:36 05/19/17 04:36 - Radiology Radiology: CT of the abdomen and pelvis with contrast on date of admission: Lower Chest: Mild atelectasis/scarring within the visualized portions of the lower lungs. No focal airspace disease. The heart is normal in size without pericardial effusion. Coronary arterial and thoracic aortic atherosclerotic calcifications. Postoperative changes of the right breast and right axillary lymph node dissection. Abdomen: No intraperitoneal free air. No intra-abdominal free fluid or fluid collections. No lymphadenopathy. Liver: The liver enhances homogeneously without focal masses. Gallbladder and biliary: Numerous stones within the gallbladder which appears otherwise normal. No biliary ductal dilatation. Spleen: The spleen appears normal. Pancreas: The pancreas demonstrates homogeneous attenuation. Adrenal glands: The adrenal glands are normal in size and attenuation. Kidneys/ureters: The kidneys appear normal. The ureters are normal in course and caliber. GI tract: Small hiatal hernia. The stomach appears otherwise normal. Small bowel loops are normal in caliber without evidence of obstruction. Colonic diverticulosis without associated inflammatory changes to suggest acute diverticulitis. Moderate colonic stool. The appendix is surgically absent by report. Vascular structures: The aorta is normal in course and caliber. The mesenteric arterial and venous structures appear patent. Pelvis: No pelvic free fluid. No pelvic lymphadenopathy. Calcified pelvic phleboliths. Bladder: The bladder appears normal. Genital system: The uterus and ovaries appear grossly normal. Skeletal structures and soft tissues: No acute osseous or soft tissue abnormality identified. Degenerative spondylosis of the visualized spine. IMPRESSION: 1. Colonic diverticulosis without associated inflammatory changes to suggest acute diverticulitis. 2. Moderate colonic stool raising consideration for constipation. 3. Cholelithiasis without imaging evidence of acute cholecystitis - Pathology Biopsies of the sigmoid colon mucosa demonstrated nonspecific colitis with mild cryptitis but no crypt abscess or granulomas. No atypia. History of Present Illness HPI: Ms Boyd is an 86 y/o w/ h/o hypothyroidism, GERD, HLD and diverticular disease with montly bouts of self-limited "diverticulitis" who presents to ED at [facility] w/ chief concern of bloody diarrhea that started last night after dinner. Patient states that she was feeling "fine" yesterday however after dinner she had some slight lower abdominal pain and then some loose stools. She states she thought this was consistent w/ what she has intermittently which normally resolves spontaneously however this time she continued to have diarrhea and then noted blood in the stool and then had a primarily bloody stools from that point on. Her abdominal pain resolved, and she denies n/v and denies f/c/s. She denies cough, soa, dyspnea, TURNER, sore throat and chest pain. She states that she has no prior h/o GI bleeding so she decided to come to the ER. In the ED, patient had one episode of blood in her stool, and per ER provider UYEN did not reveal internal rectal/external hemorrhoids. CT scan showed diverticulosis but not diverticulitis and showed no other acute process per prelim report. Patient's hgb was 11 and her WBC was 10.3. She was starte on IVFs and Dr. Mcallister was contacted and he requested the patient be admitted to the hospitalist service and he will consult in the AM. Hospital Course This is a general summary of the patient's hospital course. For more details refer to the complete medical record. Hospital course: Assessment Acute lower GI bleed, likely diverticular, acute. Family history colon cancer. Blood loss anemia, acute. Diverticulosis, chronic. GERD, chronic. Osteoarthritis, chronic. Hypertension, chronic. Hypothyroidism, chronic. Hyperlipidemia, chronic. Hospital course Mrs. Boyd presented with acute GI bleed consistent with lower origin based on history. Diverticular bleed was suspected. Serial hemoglobins were followed with immediate drop in hemoglobin to 9.2 from presenting value of 11.0. Patient had no further bloody stools after admission and hemoglobin remained relatively stable after the initial 24 hours although there was minor drop following prep for colonoscopy. She was seen in consultation by Dr. Mcallister and went to colonoscopy on 05/18/17 demonstrating extensive diverticulosis and minor changes of colitis in the sigmoid in addition to some minor internal hemorrhoids. No ongoing bleeding was identified at colonoscopy. She was started on clear liquids postoperatively and diet was advanced without any adverse consequences. Patient was ambulating without difficulty and felt stable for discharge on 05/19. I've recommended the patient add iron to her usual home regimen but that she wait until after bowel function returns to make sure that stools have normalized before introducing iron. Additionally I've asked that she follow-up with Dr. Schaeffer in approximately one week to have hemoglobin reassessed. Home medications were initially held and she was mildly hypertensive through the initial portion of the hospitalization. Losartan was resumed following colonoscopy and blood pressure was normalized at the time of discharge. On the date of discharge the patient denied any abdominal discomfort, dizziness , palpitations, or dyspnea. Abdominal examination was unremarkable and lungs were clear. Discharge plans are as noted above. She was advised to follow-up with Dr. Mcallister if she has any complications or concerns regarding colonoscopy or if she has recurrent rectal bleeding. Time spent with patient: discharge greater than 30 minutes Discharge Plan - Med Rec/Dispo Referrals/Follow Up: Adelaida Schaeffer MD [Family Provider] - 1 Week Erika Instructions: Gastrointestinal Bleeding (DC), Colonoscopy (DC), Rectal Bleeding (DC) Prescriptions: New Ferrous Sulfate 325 mg PO DAILY #100 tab Continue Losartan [Cozaar] 1 tab PO DAILY Diclofenac Sodium 75 mg PO BID Simvastatin [Zocor] 1 tab PO DAILY Levothyroxine Sodium 1 tab PO DAILY Gabapentin [Neurontin] 1 tab PO BID Omeprazole [Prilosec] 1 tab PO DAILY Discharge Instructions/Outpatient Orders: Provider Discharge Instructions Location: Determined By Patient - Disposition 01 Discharged Home, Self-Care
[2017-05-19 19:59] VITALS: PULSE 73
== END 2017-05-19 17:27 | disposition home or self-care (01) | DRG 378 ==
LOC: ED 21:05 → SRG 05-17 00:35 → SUATTDRO 05-17 00:35 → SRG 05-17 01:10
PROVIDERS: ADMIT Internal Medicine; ATTEND Internal Medicine

== ENCOUNTER 2017-05-26 00:18 | Inpatient (IN) ==
[2017-05-26] MEDS ORDERED: NS 1,000 ML IV ONE (00:43)
--- NOTE | 2017-05-26 00:46 | Emergency Department Report ---
GI Bleed HPI - General Stated complaint: Rectal bleeding Time Seen by Provider: 05/26/17 00:20 Source: patient, family Mode of arrival: ambulatory Limitations: no limitations - History of Present Illness HPI Narrative: Patient was admitted 10 days ago for a lower GI bleed, found to have severe sigmoid diverticulosis. CT scan and lab work were essentially normal on day one , after the first data patient's hemoglobin dropped as low as 8.2, but then stabilized with the bleeding stopped. Patient did not require transfusion at that time. Patient was released one week ago and did well until last night. Around 8 PM the patient began having bloody stools again, now is passing rach blood with clots. Patient does state that she feels weak, and her family feels that she looks more pale than usual. - Related Data Home Medications Medication Instructions Recorded Confirmed Diclofenac Sodium 75 mg PO BID 05/16/17 05/26/17 Gabapentin [Neurontin] 1 tab PO BID 05/16/17 05/26/17 Levothyroxine Sodium 1 tab PO DAILY 05/16/17 05/26/17 Losartan [Cozaar] 1 tab PO DAILY 05/16/17 05/26/17 Omeprazole [Prilosec] 1 tab PO DAILY 05/16/17 05/26/17 Simvastatin [Zocor] 1 tab PO DAILY 05/16/17 05/26/17 Previous Rx's Medication Instructions Recorded Ferrous Sulfate 325 mg PO DAILY #100 tab 05/19/17 Allergies Allergy/AdvReac Type Severity Reaction Status Date / Time Penicillins Allergy Verified 05/26/17 00:39 Sulfa (Sulfonamide Allergy Verified 05/26/17 00:39 Antibiotics) Review of Systems All systems: reviewed and negative except as stated PFSH Patient Stated Medical History Cerebrovascular Accident No Peripheral Neuropathy Yes: Left foot Paralysis No Seizures No Syncope No Hypertension Yes Asthma No Bronchitis No Chronic Obstructive Pulmonary No Disease (COPD) Pneumonia No Pulmonary Edema No Pulmonary Embolism No Sleep Apnea No Tuberculosis No Other Respiratory No Gastroesophageal Reflux Yes: well controlled with meds Disease Gastrointestinal Bleeding Yes: currently Other GI Yes: diverticulitis Hx Urinary Tract Infection Yes: hx of bladder infection 04/24 Osteoarthritis No Other Musculoskeletal No Blood Transfusions Yes: At age 20 with appy; no reaction Depression No Post Menopausal Yes Sigmoid diverticulosis with GI bleed Medical History Updates: Hypothyroidism. Hyperlipidemia. GERD. Diverticular disease w/ intermittent bouts of "diverticulitis" that resolve spontaneously. OA. HTN. UTI - 04/24/2017 Surgical History: * Colonoscopy with polypectomy - 06/17/[address] Ephraim Polo. 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 * Colonoscopy - ~2005 in [place], [place]. * Left shoulder ORIF. * Tubal ligation. * Open right ovarian repair and incidental appendectomy. * Tonsillectomy - Social History Smoking status: Never smoker Substance use type: does not use Alcohol intake frequency: does not drink Physical Exam - Limitations Limitations: no limitations - General General appearance: alert - Normal Exams: Head:: Normocephalic without trauma Eyes:: Pupils are PERRLA w/ EOMI, No scleral icterus, irritation, or foreign bodies noted ENMT:: No facial trauma, nasal exudates, pharyngeal erythema, or exudates are noted Neck:: Full range of motion, without adenopathy, JVD, bruits or thyromegaly Chest/Respirations:: Clear all fernández, with good airflow, and symmetry bilaterally Cardiovascular:: Regular rate and rhythm, without murmur or gallop, Pulses 2+ all extremities, capillary refill, <2 seconds all extremities Abdomen:: Bowel sounds positive, soft, non-tender, non-distended, no hepatosplenomegaly, masses or bruits noted Musculoskeletal:: No tenderness, or deformity noted, good range of motion, all extremities Integumentary:: No rashes, hives, or bruising noted, hair and nails, without abnormality Neurological:: Patient is alert, and oriented, cranial nerves, motor/sensory/ cerebellar, exams w/o gross deficits, to observation Psychiatric:: Patient exhibits, appropriate attention, emotion and affect - Rectal Exam Rectal exam: Present: other (patient has mild external rectal tenderness, rach blood that is heme positive) GI Bleed - [facility] Narrative Medical decision making narrative: Initial vital signs are essentially normal, however patient has mild tachycardia after walking, but normalized while resting in bed. Blood pressure initially is normal at 136/74 Patient given 1 L normal saline IV fluid bolus CBC - essentially unchanged from dismissal, hemoglobin 8.4 currently CMP/L - normal Case discussed with Dr. Tomás Quiroz who will admit the patient to telemetry/ surgery, Dr. Michael Cedeno is consulted and was notified of the patient's current condition instability. - Lab Data Result diagrams: 05/26/17 01:07 05/26/17 01:07 Lab Results 05/26/17 Range/Units 01:07 WBC 8.8 (4.5-11.0) T/MM3 RBC 2.84 L (4.00-5.20) M/MM3 Hgb 8.4 L (12-16) GM/DL Hct 26.5 L (36-46) % MCV 93.3 (80-100) UM3 MCH 29.6 (26-34) UUG MCHC 31.7 (31-37) GM/DL RDW Std Deviation 53.0 H (36.9-50.2) FL Plt Count 401 H (130-400) T/MM3 MPV 9.1 L (9.4-12.4) UM3 Immature Gran % (Auto) 0.2 (0.0-0.5) % Neut % (Auto) 78.8 H (33-66) % Lymph % (Auto) 16.9 L (23-45) % Kleberg % (Auto) 3.7 (0-9.0) % Eos % (Auto) 0.2 (0-4) % Baso % (Auto) 0.2 (0-2) % Neut # (Auto) 7.0 (1.8-7.7) T/MM3 Lymph # (Auto) 1.5 (1-4.8) T/MM3 Kleberg # (Auto) 0.3 (0-0.8) T/MM3 Eos # (Auto) 0.0 (0-0.5) T/MM3 Baso # (Auto) 0.0 (0-0.2) T/MM3 Abs Immat Gran (auto) 0.02 (0.00-0.03) T/MM3 Disposition Clinical Impression: Lower GI bleed Disposition: 02 To [facility] Acute Care Condition: Stable Prescriptions: No Action Losartan [Cozaar] 1 tab PO DAILY Diclofenac Sodium 75 mg PO BID Simvastatin [Zocor] 1 tab PO DAILY Levothyroxine Sodium 1 tab PO DAILY Gabapentin [Neurontin] 1 tab PO BID Omeprazole [Prilosec] 1 tab PO DAILY Ferrous Sulfate 325 mg PO DAILY #100 tab Referrals: Adelaida Schaeffer MD [Family Provider] - - Seen By: physician
[2017-05-26] MEDS: SALINE FLUSH 10ml SYRINGE IVF PRN ×3 (01:05→16:11)
[2017-05-26] MEDS ORDERED: ONDANSETRON 4 MG/2 ML INJECTION IVP PRN (01:48)
[2017-05-26 02:06] VITALS: BMI 25.0
[2017-05-26] MEDS: PANTOPRAZOLE 40 MG INJECTION IVP SCH ×2 (02:29→14:33)
--- NOTE | 2017-05-26 02:34 | History & Physical Report ---
<Tomás Quiroz - Last Filed: 05/26/17 02:30> History of Present Illness Date: 05/26/17 Chief complaint: blood in stool HPI: This is a 86 y/o female discharged from the hospital about 5 days ago after an episode of lower gi bleed thought to be secondary to diverticular ds The pateint was doing fine until 8:30 this evening when she started having cramping in lower abdomen and bright red blood per rectum. She had about 6 to 7 large stools with clots and presents to the ED where she no longer had any bloody stools. The patient's Hg is stable, vitals are stable. At this time the patient is admitted for further evaluation. ED did talk to surgery who is aware. The patient had a CT scan of the abdomen that was otherwise unremarkable last week. The patient had a colonoscopy that actually was benign in appearance. Review of Systems Review of systems: no headache, no fever, chills or sweats, some weakness, no neck pain, no chest pain, no pnd, no orthopnea, no cough, no congestion, mild abdomen cramping with bloody stools as noted above, no focal neuro complaints. 10 point ROS otherwise neg x for outlnied above PFSH Patient Stated Medical History Hypertension Yes Gastroesophageal Reflux Yes: well controlled with meds Disease Gastrointestinal Bleeding Yes: currently Other GI Yes: diverticulitis Hx Urinary Tract Infection Yes: hx of Blood Transfusions Yes Post Menopausal Yes Medical History Updates: Hypothyroidism. Hyperlipidemia. GERD. Diverticular disease w/ intermittent bouts of "diverticulitis" that resolve spontaneously. OA. HTN. UTI - 04/24/2017 Surgical History: * Colonoscopy with polypectomy - 06/17/[address] Ephraim Polo. 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 * Colonoscopy - ~2005 in [place], [place]. * Left shoulder ORIF. * Tubal ligation. * Open right ovarian repair and incidental appendectomy. * Tonsillectomy - Social History Smoking status: Never smoker Medications Home Medications Medication Instructions Recorded Confirmed Type Diclofenac Sodium 75 mg PO BID 05/16/17 05/26/17 History Gabapentin [Neurontin] 1 tab PO BID 05/16/17 05/26/17 History Levothyroxine Sodium 1 tab PO DAILY 05/16/17 05/26/17 History Losartan [Cozaar] 1 tab PO DAILY 05/16/17 05/26/17 History Omeprazole [Prilosec] 1 tab PO DAILY 05/16/17 05/26/17 History Simvastatin [Zocor] 1 tab PO DAILY 05/16/17 05/26/17 History Allergies Allergy/AdvReac Type Severity Reaction Status Date / Time Penicillins Allergy Verified 05/26/17 00:39 Sulfa (Sulfonamide Allergy Verified 05/26/17 00:39 Antibiotics) Exam Vital Signs: Temperature 98.1 F 05/26/17 01:49 Pulse Rate 98 05/26/17 01:49 Respiratory Rate 20 05/26/17 01:49 Blood Pressure 164/75 H 05/26/17 01:49 Pulse Oximetry 98 05/26/17 01:49 Telemetry Rhythm: Sinus Rhythm Height/Weight/BMI: Height 1.63 m Weight 66 kg Body Mass Index 25.0 - Constitutional Present: mild distress, well nourished, well developed, average body habitus, cooperative - Routine HEENT Exam Head: Present: normocephalic, atraumatic Eye: Present: EOMI, conjunctivae pink. Absent: scleral injection ENT: Present: mucous membranes dry - Routine Neck Exam Present: supple, full ROM - Routine Respiratory Exam Present: CTA bilaterally. Absent: prolonged expiratory phase, respiratory distress, wheezes - Routine Cardiovascular Exam Present: RRR, S1, S2, no murmur - Routine Abdominal Exam Present: soft, normoactive bowel sounds, non distended, non tender - Routine Rectal Exam Visual: Present: bloody stool - Routine Extremities Exam Present: edema, full ROM - Routine Back/Spine/Pelvis Exam Back/Spine: Present: full ROM - Routine Skin Exam Present: intact - Routine Neurological Exam Present: alert, oriented X3. Absent: motor deficit - Routine Psychiatric Exam Present: normal affect, normal thought process Results - Labs CBC & Chem 7: 05/26/17 01:07 05/26/17 01:07 Assessment and Plan (1) Lower GI bleed Current visit: Yes Status: Acute 05/26/17 02:35 patient with recurrent lower gi bleed. colonoscopy last week was unrevealing but bleeding had stopped by time of procedure. CT of the abd/pelvis also was relatively benign with gallbladder ds identified. The patient at this time is on iron supplement. initial blood work was reasuring . Since the patient has had no further bleeding since arriving a bleeding scan will be of no use. If her bleeding reoccurs then we can proceed with a bleeding scan to at least localize the potential source of bleeding. Surgery was contacted by ED and is aware but has not been formally cx. Repeat labs in the am. DDX: diverticular bleed, av malformation, unlikely tumor with normal CT and Colonoscopy. (2) Anemia associated with acute blood loss Current visit: Yes Status: Acute 05/26/17 02:38 will follow Hg, no indication for transfusion at this time. (3) Diverticulosis Current visit: Yes Status: Acute 05/26/17 02:[address] on previous admission. as noted above, could be a potenial source of bleeding. no indication for urgent surgery at thist dimitrios. (4) Hypothyroid Current visit: Yes Status: Acute 05/26/17 02:39 continue synthroid when med rec is complete. pt clear liquid so can continue meds. (5) Hypertension Current visit: Yes Status: Acute 05/26/17 02:39 will hold losartan overnight. adjust meds as indicated in the morning DVT Prophylaxis: SCD's GI Prophylaxis: Protonix Resuscitation Status: Full Code Hospital Course Summary Disclaimer: The visit summary below is not to be considered part of the above Progress Note. <Pippa Durant - Last Filed: 05/26/17 11:22> History of Present Illness Date: 05/26/17 Exam Vital Signs: Temperature 97.6 F 05/26/17 07:51 Pulse Rate 72 05/26/17 07:51 Respiratory Rate 18 05/26/17 05:45 Blood Pressure 141/67 H 05/26/17 07:51 Pulse Oximetry 97 05/26/17 07:51 Height/Weight/BMI: Height 1.63 m Weight 66 kg Body Mass Index 25.0 Results - Labs CBC & Chem 7: 05/26/17 04:47 05/26/17 01:07 Assessment and Plan (1) Lower GI bleed Current visit: Yes Status: Acute (2) Anemia associated with acute blood loss Current visit: Yes Status: Acute (3) Diverticulosis Current visit: Yes Status: Acute Assessment and Plan: Dr. Quiroz's note reviewed. Mrs. Boyd interviewed and examined. CC: Bright red blood per rectum HPI: Mrs. Boyd is an 86-year-old female recently hospitalized for rectal bleeding attributed to diverticuli based on findings at colonoscopy. She additionally had very mild colitis and internal hemorrhoids identified at the study performed by Dr. Mcallister. Discharge hemoglobin was 8.3 on 05/19. In the intervening time she reports she's had mild weakness and normal daily bowel movements without straining. She was doing well until about 8:30 yesterday evening when she developed some minor cramping in the lower abdomen followed by 6-7 large bloody stools with clots. She denied having lightheadedness, dyspnea, or chest pain. She initially thought the bleeding would stop and try to stay home so she could see her primary care physician today but with ongoing stools she contacted family members and presented to the emergency room and was subsequently admitted. She's had no stools since 11:30 yesterday evening and denies ongoing abdominal discomfort or dizziness this morning. Hemoglobin on admission early this morning was 11.4 and has dropped to 6.9; one unit of blood has been ordered. PH/SH/FH: agree with that recorded above with additions of hypothyroidism, GERD , and mild colitis at recent endoscopic study. Past surgeries include tonsillectomy, appendectomy, bilateral tubal ligation, and left shoulder ORIF. FH: Mother from complications of colon cancer. SH: No history of alcohol tobacco, or illicit drugs. PCP Dr. Elgin Schaeffer, son and daughter are her alternate decision makers, and patient is a full code. ROS: 10 point review as per Dr. Quiroz. EXAM: General-97.6, 141/67, pulse 72, 97% on room air; NAD, alert, fluent speech HEENT-PERRL, EOMI without nystagmus, conjunctiva clear, sclera anicteric, conjugate gaze, facial structures symmetric, oropharynx clear, neck supple Lungs-respirations nonlabored with good airflow, breath sounds clear Cardiac-regular rhythm, S1-S2 Abd-soft, nontender, without guarding or palpable mass, diminished bowel sounds Ext-without edema Skin-no rash or evidence of wounds unexposed surfaces Neuro-MAEW, sensation intact 4 extremities, CN 3-12 intact Psych-calm, cooperative DATA: Hemoglobin as noted in the history of present illness, INR 1.14, electrolytes unremarkable, creatinine 0.6, liver enzymes unremarkable, lipase 118. EKG reviewed by myself demonstrating sinus rhythm with left axis deviation and probable old anterolateral IA. No acute ST/T-wave changes; no old EKGs available for comparison. A/P: Recurrent GI bleed Acute blood loss anemia Diverticulosis Mild colitis Hypertension Possible CAD by EKG. Moderate drop in hemoglobin overnight, one unit of blood being given now. Bleed appears to stop spontaneously. Will discuss with Dr. Mcallister to determine if any benefit to repeat imaging rectosigmoid area where mild colitis was previously described. Continue supportive care. If no further bleeding will begin clear liquids later today and advance diet as tolerated. Oral medications on hold at present. Repeat EKG later today to determine if stable findings or poor lead placement caused abnormalities seen on presenting twelve-lead. Hospital Course Summary Disclaimer: The visit summary below is not to be considered part of the above Progress Note.
[2017-05-26] MEDS: NS 1,000 ML IV SCH ×2 (02:45→16:11)
[2017-05-26] MEDS ORDERED: NS FLUSH BAG 500ml IV PRN (05:48)
[2017-05-27] MEDS: NS 1,000 ML IV SCH ×2 (01:19→12:06)
[2017-05-27] MEDS: PANTOPRAZOLE 40 MG INJECTION IVP SCH ×2 (01:22→15:37)
--- NOTE | 2017-05-27 12:19 | Discharge Instructions ---
Discharge Plan - Med Rec/Dispo Referrals/Follow Up: Adelaida Schaeffer MD [Family Provider] - [place] Instructions: Blood Transfusion (GEN) Prescriptions: Continue Losartan [Cozaar] 1 tab PO DAILY Simvastatin [Zocor] 1 tab PO DAILY Levothyroxine Sodium 1 tab PO DAILY Gabapentin [Neurontin] 1 tab PO BID Omeprazole [Prilosec] 1 tab PO DAILY Ferrous Sulfate 325 mg PO DAILY #100 tab Discontinued Diclofenac Sodium 75 mg PO BID Discharge Instructions/Outpatient Orders: Provider Discharge Instructions Location: Determined By Patient - Disposition 01 Discharged Home, Self-Care
[2017-05-27 15:43] VITALS: BP 163/87; RESP 16; TEMP 98.3; O2SAT 97
[2017-05-27 17:29] VITALS: PULSE 74
--- NOTE | 2017-05-27 20:46 | Discharge Summary ---
Discharge Information Date of admission: 05/26/17 01:45 Anticipated date of discharge: 05/27/17 Attending Physician: Pippa Durant MD Primary care physician: Adelaida Schaeffer MD - Discharge Diagnosis (1) Lower GI bleed Status: Acute (2) Anemia associated with acute blood loss Status: Acute (3) Diverticulosis Status: Acute - Procedures Procedures: Transfusion-1 unit packed red blood cells - Laboratory Labs: Admission hemoglobin 8.4 dropping to 6.9 4 hours later; improved to 8.5 after 1 unit of blood transfused. Chemistries all normal on admission and lipase 118. 05/27/17 08:17 05/27/17 04:18 History of Present Illness HPI: This is a 86 y/o female discharged from the hospital about 5 days ago after an episode of lower gi bleed thought to be secondary to diverticular ds The pateint was doing fine until 8:30 this evening when she started having cramping in lower abdomen and bright red blood per rectum. She had about 6 to 7 large stools with clots and presents to the ED where she no longer had any bloody stools. The patient's Hg is stable, vitals are stable. At this time the patient is admitted for further evaluation. ED did talk to surgery who is aware. The patient had a CT scan of the abdomen that was otherwise unremarkable last week. The patient had a colonoscopy that actually was benign in appearance. Hospital Course This is a general summary of the patient's hospital course. For more details refer to the complete medical record. Hospital course: Assessment: Recurrent GI bleed Acute blood loss anemia Diverticulosis Mild colitis Hypertension Possible CAD by EKG. Hospital course: Mrs. Boyd was readmitted with acute bright red blood per rectum with bleeding lasting for approximate 8:30 PM to 11:30 PM after which she had no further blood loss. Hemoglobin dropped to 6.9 when rechecked shortly after admission and one unit of packed red blood cells was transfused. Dr. Cedeno was covering for Dr. Mcallister and did not feel additional studies were needed in light of colonoscopy last week demonstrating diverticuli. Minor changes of colitis were seen but pathology was reviewed and not felt to warrant active treatment. Clear liquids were resumed late in the day on 05/26 and soft diet initiated 05/27. Hemoglobin remained stable after transfusion and the patient was asymptomatic on 05/27. She had a normal bowel movement early in the morning on the with very small adherent clots of dark blood but no blood in the toilet water and no subsequent bleeding. Hemoglobin prior to discharge was 8.7. Patient will resume fiber supplements as before. Abdominal examination is unremarkable at discharge and respirations are nonlabored with clear breath sounds. She denied abdominal pain or cramping. An EKG was obtained on admission which incidentally showed poor R waves across the precordial leads suggestive of anteroseptal DC and old inferior DC. The patient has no reported history of coronary disease. EKG was repeated on 05/26 to confirm findings with same identified. EKG was not discussed with the patient due to oversight on my part but will be referred back to Dr. Schaeffer. On 05/27 patient was felt stable for discharge as noted above and was tolerating oral diet. She will resume prior home medications although I've recommended that she hold diclofenac to minimize platelet inhibition. Tylenol was recommended as an alternate pain medication. I've asked that she follow-up with Dr. Schaeffer in approximately one week. Time spent with patient: greater than 35 minutes Discharge Plan - Med Rec/Dispo Referrals/Follow Up: Adelaida Schaeffer MD [Family Provider] - [facility] Instructions: Gastrointestinal Bleeding (DC), Blood Transfusion (GEN) Prescriptions: Continue Losartan [Cozaar] 1 tab PO DAILY Simvastatin [Zocor] 1 tab PO DAILY Levothyroxine Sodium 1 tab PO DAILY Gabapentin [Neurontin] 1 tab PO BID Omeprazole [Prilosec] 1 tab PO DAILY Ferrous Sulfate 325 mg PO DAILY #100 tab Discontinued Diclofenac Sodium 75 mg PO BID Discharge Instructions/Outpatient Orders: Provider Discharge Instructions Location: Determined By Patient - Disposition 01 Discharged Home, Self-Care
== END 2017-05-27 15:45 | disposition home or self-care (01) | DRG 378 ==
LOC: ED 00:18 → SRG 01:45
PROVIDERS: ADMIT Emergency Medicine; ATTEND Internal Medicine

== ENCOUNTER 2017-11-16 06:36 | Inpatient (IN) ==
[~2017-11-16 06:36] MED LIST: ACETAMINOPHEN 500 MG TABLET PO ONE; DEXAMETHASONE 4 MG/ML INJECTION IVP ONE; FAMOTIDINE PB 20 MG/50 ML BAG IV ONE; LIDOCAINE 1% (10mg/ml) 2mL INJ PF SDV ID ONE; METOCLOPRAMIDE 10mg/2ml INJECTION IVP ONE; ONDANSETRON 4 MG/2 ML INJECTION IVP ONE; TRANEXAMIC ACID 1,000 MG in NS 100 ML IV ONE
[2017-11-16 06:49] VITALS: BMI 24.3
[2017-11-16] MEDS: LR 1,000 ML IV SCH ×2 (07:00→09:17)
[2017-11-16] MEDS ORDERED: TRANEXAMIC ACID 1,000 MG in NS 100 ML IV ONE (07:00)
[2017-11-16] MEDS ORDERED: CEFAZOLIN 1 G INJECTION IVP ONE (07:14)
[2017-11-16] MEDS: NOZIN NASAL SWAB NAS SCH ×5 (07:24→21:16)
[2017-11-16] MEDS ORDERED: VANCOMYCIN 1,000 MG INJECTION ONE (07:28)
[2017-11-16] MEDS ORDERED: EPINEPHrine PF 0.25 MG, BUPIVACAINE 0.25% PF 30 ML, KETOROLAC INJ 60 MG in NS 30 ML OPSITE ONE (08:00)
--- NOTE | 2017-11-16 08:05 | Anesthesia Preoperative Report ---
Anesthesia Preoperative Record - Date and Time Date: 11/16/17 Preoperative Diagnosis: robotic total knee M17.11 Proposed Procedure: Right TKA NPO Since Date: 11/15/17 NPO Since Time: 21:00 Allergies/Adverse Reactions: Allergies Allergy/AdvReac Type Severity Reaction Status Date / Time Sulfa (Sulfonamide Allergy Severe Rash Verified 11/16/17 07:04 Antibiotics) Penicillins Allergy Mild Rash Verified 11/16/17 07:04 - Vital Signs Vital Signs: Temperature 98.3 F 11/16/17 06:46 Pulse Rate 85 11/16/17 07:19 Respiratory Rate 12 11/16/17 06:46 Blood Pressure 155/75 H 11/16/17 06:46 Pulse Oximetry 94 11/16/17 06:46 Height and Weight: Height 5 ft 4 in Weight 64.4 kg Body Mass Index 24.3 - Medications Inpatient Medications: Current Medications Epinephrine HCl 0.25 mg/Bupivacaine HCl 30 ml/Ketorolac Tromethamine 60 mg/ Sodium Chloride 62.25 mls @ 1 mls/hr OPSITE INTRAOP ONE PRN Reason: Protocol Stop: 11/18/17 22:14 Lactated Ringer's (Lactated Ringers) 1,000 mls @ 50 mls/hr IV .Q20H [facility] Last Admin: 11/16/17 07:00 Dose: 50 mls/hr Isopropyl Alcohol (Nozin Nasal Swab) 1 each BILLY Q1M MICHOACANO Stop: 11/16/17 12:18 Last Admin: 11/16/17 07:29 Dose: 1 each Sodium Chloride (Iv Flush) 10 - 80 ml IV PRN PRN PRN Reason: Flushing Home Medications: Home Medications Medication Instructions Recorded Confirmed Type Gabapentin [Neurontin] 100 mg PO BID 05/16/17 11/16/17 History Losartan [Cozaar] 100 mg PO HS 05/16/17 11/16/17 History Omeprazole [Prilosec] 20 mg PO HS 05/16/17 11/16/17 History ergocalciferol (vitamin D2) 50,000 50,000 unit PO DAILY #2 cap 10/06/17 Rx unit capsule Levothyroxine Tab [Synthroid] 88 mcg PO ACB 11/09/17 11/16/17 History Simvastatin [Zocor] 40 mg PO HS 11/09/17 11/16/17 History Is Patient on Beta Earl?: No - Medical History Cardiovascular: Reports: Hypertension, High Cholesterol DENIES: Abnormal EKG, Angina, Arrhythmia, Congestive Heart Failure, Coronary Artery Disease, Heart Murmur, Hypotension, Myocardial Infarction, Rheumatic Fever, Valvular Heart Disease, Other Gastrointestional: Reports: Gastroesophageal Reflux Disease, Gastrointestinal Bleeding (lower gi bleed ), Other (diverticulitis) DENIES: Obstructive Bowel, Hepatitis, Cirrhosis, Nausea or Vomiting Present, Hiatal Hernia, Ulcer, Morbid Obesity Neuro/Musculoskeletal: Reports: HX.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) Denies: Back Problems, Cerebrovascular Accident, Depression, Headaches, Loss of Consciousness, Muscle Weakness, Neuromuscular Disorder, Paralysis, Paresthesia, Syncope, Seizures, Other Renal/Endocrine: Reports: Thyroid Disease (hypo) DENIES: Diabetes Mellitus Type 1, Diabetes Mellitus Type 2, Renal Failure, Dialysis, Weight Loss, Weight Gain, Other Other History: Reports: Blood Transfusions (2016, no known reactions), Cancer ( Breast CA with lumpectomy right; radiation 2002) DENIES: Anesthesia Reactions, Now, Chemotherapy, Hemophilia, Malignant Hyperthermia, Sickle Cell Disease, Other - Surgical History HEENT Surgeries: Reports: Tonsillectomy GI Surgery/Treatments: Reports: Appendectomy, Colonoscopy (polyps) Musculoskeletal Surgery/Tx: Reports: Shoulder Arthroscopy (left 11 years ago) Reproductive Surgery/Treatment: Reports: Oophorectomy (right), Tubal Ligation, Other (right breast lumpectomy) Anesthesia Reactions: None Hx Family Anesthesia Reaction: No History of Motion Sickness: No - Social History Smoking Status: Never smoker Hx Chewing Tobacco Use: No Second Hand Exposure: No Substance Use Type: does not use Alcohol Intake: never Alcohol Intake Frequency: does not drink - Pertinent Findings Laboratory: CBC and BMP 11/16/17 06:58 11/16/17 06:58 BMP 11/16/17 06:58 Sodium 143 Potassium 4.0 Chloride 106 Carbon Dioxide 23 BUN 17.0 Creatinine 0.5 L Glucose 124 H Calcium 10.5 H EKG: Sinus Rhythm - Physical Exam Respiratory Exam: Present: lungs clear, bilateral breath sounds equal Cardiovascular Exam: Present: regular rate and rhythm, no murmur - Airway Assessment Mallampati Score: II TMD: 3 Fingerbreadths Neck Extension: good Overall Assessment: no airway concerns - ASA ASA Score: 2 - Plan Anesthesia: General TIVA - Discussion Discussion: Discussed risks/options/alternatives of anesthesia and questions answered. Patient consents. Nursing pain assessment noted. Present for Discussion: family member Attestation Statement: Prior to the delivery of any anesthetic medication, I examined the patient, developed the plan, obtained the patient's consent and discussed the risk and benefits of the procedure with the patient/guardian. - Additional Information Seen by Anesthesia: Yes
[2017-11-16] MEDS ORDERED: ANESTHESIA MIXTURE 50 ML IV ONE (08:15)
[2017-11-16] MEDS ORDERED: FentaNYL 250 MCG/5 ML INJECTION ONE (08:15)
[2017-11-16] MEDS ORDERED: VANCOMYCIN 1,000 MG INJECTION IAR ONE (08:20)
--- NOTE | 2017-11-16 09:57 | Operative Note ---
- Procedure Preoperative Diagnosis: Right knee primary degenerative joint disease Postoperative Diagnosis: Same as preoperative diagnosis. Surgeon: Alex Michel MD Donor Floor Technician: Mali Kate Complications: None. Anesthesia: Spinal. Estimated Blood Loss: See Anesthesia Record. Fluids: Please see Anesthesia Record. Description of Procedure: Mrs. Boyd and her right knee were identified and marked in the preoperative holding area. She was brought back to the operating suite. Spinal anesthetic was administered and she was placed supine on the operating table. The right lower extremity was prepped and draped in my normal sterile fashion. Timeout was performed. The [employer]ged[employer] robotic arm was used during the surgery. She had a correctable valgus deformity with a hyperextension of 5. A standard anterior midline incision followed by medial parapatellar arthrotomy was performed. Anterior fat pad and meniscus were removed. The patella was everted and a patellar osteotomy was performed leaving 13 mm of bone. She had significant wear in the lateral compartment. She had visible poor trabecular bone both in the femur and the tibia. Tibial and femoral arrays and checkpoints were placed both within the original incision. The bone was then registered with the Logged[employer] robot. Osteophytes were removed and gaps were captured both 90 and 0 with correction. Given her hyperextension and held loose she was in flexion I balanced her gaps at 15 mm in extension and 16 mm in flexion. The [employer] robotic arm was then used to assist with the bone cuts. Posterior osteophytes and remaining meniscus were removed. Trial components were placed. We used a 3 femur and a 4 tibia with a 9 mm spacer and a 29 patella. She tracked well and was well balanced throughout range of motion. Again given her osteoporosis I placed a 50 mm stem on the tibial component. The leg was exsanguinated and the tourniquet inflated to 250 mmHg. The tibia was stamped. The bone was prepared for cementing and components were cemented into place and allowed to cure in extension. The tourniquet was let down and hemostasis obtained with electrocautery. The knee was ranged one more time to ensure good stability, balance and patellar tracking. 1 g of vancomycin powder was then placed into the knee joint. The capsulotomy was then closed with #1 Vicryl. I then left my assistant family teacher to close the subcutaneous tissue with 2-0 Vicryl and 0 V-Lock.. Running 4-0 Monoderm will be used in the subcuticular layer. A sterile left flex dressing was placed. After drapes are removed patient will be taken to recovery room under the care of anesthesia.
--- NOTE | 2017-11-16 10:43 | Anesthesia Procedure Note ---
Peripheral Nerve Blockade - Procedure Physician: Mor Michel MD Date: 11/16/17 Surgical Procedure: Right TKA Discussion: Discussed risks/options/alternatives of anesthesia and questions answered. Patient consents. Nursing pain assessment noted. Block Start: 10:37 Block Stop: 10:38 Blocked Employed: Adductor Canal Indication: Post-Operative Pain Approach: Right Side Confirmed Position: Supine Patient: Consent, Risks/Benefits Discussed, Informed, Post Block Act. Discussed IV Sedation: No (spinal intact) Initial Vital Signs: Temperature 98.3 F 11/16/17 06:46 Temperature Source Oral 11/16/17 06:46 Pulse Rate 89 11/16/17 06:46 Respiratory Rate 12 11/16/17 06:46 Blood Pressure 155/75 H 11/16/17 06:46 Blood Pressure Mean 101 11/16/17 06:46 Blood Pressure Position Sitting 11/16/17 06:46 Pulse Oximetry 94 11/16/17 06:46 Oxygen Delivery Method 11/16/17 06:46 Post Vital Signs: Temperature 97.2 F 11/16/17 10:32 Pulse Rate 85 11/16/17 07:19 Respiratory Rate 12 11/16/17 06:46 Blood Pressure 155/75 H 11/16/17 06:46 Pulse Oximetry 94 11/16/17 06:46 Initial Pain Pain Score: 0 Post Block Pain Score: 0 Prep: Chlorhexadine/ETOH, Sterile Technique Ultrasound Used?: Yes - Nerve Simulator Muscle Response: No Paresthesia/Pain: None - Injectate Ropivacaine (%): 0.5 Ropivacaine (mL): 13 Was Epi 1:200,000 Used?: No Injection: Injection made incrementally with constant monitoring and aspiration every 3 ml
--- NOTE | 2017-11-16 10:44 | Anesthesia Postoperative Note ---
- Date and Time Date: 11/16/17 Time: 10:43 - Status Patient Participated in Evaluation: Patient Participated in Person Vital Signs: Temperature 97.2 F 11/16/17 10:32 Pulse Rate 85 11/16/17 07:19 Respiratory Rate 12 11/16/17 06:46 Blood Pressure 155/75 H 11/16/17 06:46 Pulse Oximetry 94 11/16/17 06:46 Respiratory Function: Airway Patent, Regular Respirations Cardiovascular Function: Regular Pulse EKG: Sinus Rhythm Mental Status: Alert and Oriented Pain Intensity: 0 Hydration: IV Infusing Complications During Recover: None Apparent - Follow-Up Instructions Instructions: Per Surgeon
[2017-11-16] MEDS ORDERED: FentaNYL 250 MCG/5 ML INJECTION IVP ONE (11:00)
[2017-11-16] MEDS ORDERED: BUPIVACAINE ID ONE (11:00)
[2017-11-16] MEDS ORDERED: LIDOCAINE 1% (10mg/ml) 30ml SDV INJ INJ ONE (11:00)
[2017-11-16] MEDS ORDERED: ROPIVACAINE 0.5% (5mg/ml) 30ml INJ INJ ONE (11:00)
[2017-11-16] MEDS ORDERED: MIDAZOLAM 2mg/2ml INJECTION IVP ONE (11:00)
[2017-11-16] MEDS ORDERED: DiphenhydrAMINE 50 MG/ML INJECTION IVP PRN (11:25)
[2017-11-16] MEDS ORDERED: NOZIN NASAL SWAB NAS ONE (11:25)
[2017-11-16] MEDS ORDERED: DiphenhydrAMINE 25 MG CAPSULE PO PRN (11:25)
[2017-11-16] MEDS ORDERED: ONDANSETRON 4 MG/2 ML INJECTION IVP PRN (11:25)
[2017-11-16] MEDS ORDERED: LORazepam 1 MG TABLET PO PRN (11:25)
[2017-11-16] MEDS: NS 1,000 ML IV SCH (11:27)
[2017-11-16] MEDS ORDERED: SALINE FLUSH 10ml SYRINGE IV PRN (12:06)
[2017-11-16] MEDS ORDERED: FALL RISK - PHARMACY CONSULT MC ONE (12:19)
[2017-11-16] MEDS: ACETAMINOPHEN 325 MG TABLET PO SCH ×3 (12:38→21:17)
[2017-11-16] MEDS ORDERED: PNEUMOCOCCAL VAC ADMIN CHARGE INJ ONE (12:39)
--- NOTE | 2017-11-16 12:39 | XRay Report ---
Indication: postoperative image PROCEDURE: XR knee RT 2V: Encounter: Initial Comparison: None. Findings: The patient is status post right knee arthroplasty. The alignment is anatomic. There is no definite displaced fracture or bony destructive process. No soft tissue mass or abnormal calcification. No radiopaque foreign body. Impression: Anatomic alignment status post right knee arthroplasty. .
[2017-11-16] MEDS ORDERED: PNEUMOCOCCAL 13 VACCINE 0.5ml INJECTION IM ONE (13:00)
[2017-11-16] MEDS: TRAMADOL 50 MG TABLET PO PRN (16:29)
[2017-11-16] MEDS: CEFAZOLIN 1 G in NS 100 ML IV SCH (17:06)
[2017-11-16] MEDS: LOSARTAN 100 MG TABLET PO SCH (21:16)
[2017-11-16] MEDS: GABAPENTIN 100 MG CAPSULE PO SCH (21:16)
[2017-11-16] MEDS: SIMVASTATIN 40 MG TABLET PO SCH (21:16)
[2017-11-16] MEDS: DOCUSATE SODIUM 100 MG CAPSULE PO SCH (21:16)
[2017-11-16] MEDS: SENNOSIDES 8.6 MG TABLET PO SCH (21:16)
[2017-11-16] MEDS: ASPIRIN *EC* 81 MG TABLET PO SCH (21:17)
[2017-11-16] MEDS: NAPROXEN 220 MG TABLET PO SCH (21:17)
[2017-11-16] MEDS: OMEPRAZOLE 20 MG CAPSULE PO SCH (21:18)
[2017-11-17] MEDS: CEFAZOLIN 1 G in NS 100 ML IV SCH (00:02)
[2017-11-17] MEDS: NS 1,000 ML IV SCH (00:02)
[2017-11-17] MEDS: TRAMADOL 50 MG TABLET PO PRN ×4 (00:12→21:19)
[2017-11-17] MEDS: LEVOTHYROXINE 88 MCG TABLET PO SCH (05:41)
[2017-11-17] MEDS: NOZIN NASAL SWAB NAS SCH ×3 (05:41→21:19)
[2017-11-17] MEDS: NAPROXEN 220 MG TABLET PO SCH ×2 (08:33→21:20)
[2017-11-17] MEDS: POLYETHYL GLYCOL 3350 17gm PACKET PO SCH (08:33)
[2017-11-17] MEDS: ACETAMINOPHEN 325 MG TABLET PO SCH ×4 (08:34→21:20)
[2017-11-17] MEDS: ASPIRIN *EC* 81 MG TABLET PO SCH ×2 (08:34→21:21)
[2017-11-17] MEDS: DOCUSATE SODIUM 100 MG CAPSULE PO SCH ×2 (08:34→21:20)
[2017-11-17] MEDS: GABAPENTIN 100 MG CAPSULE PO SCH ×2 (08:34→21:19)
[2017-11-17] MEDS ORDERED: SENNOSIDES 8.6 MG TABLET PO PRN (10:26)
--- NOTE | 2017-11-17 12:49 | Orthopedic Progress Note ---
Date: Date: 11/17/17 Time: 1242 Subjective/Severity of Illness: Doing very well this AM. Pain is controlled. No CP or breathing issues. Had some bloody drainage from the knee overnight. Hgb 10.6 Orthopedic Exam Vital signs: Temperature 95.5 F L 11/17/17 11:57 Pulse Rate 59 L 11/17/17 11:57 Respiratory Rate 18 11/17/17 11:57 Blood Pressure 131/59 11/17/17 11:57 Pulse Oximetry 99 11/17/17 11:57 - Constitutional General Appearance: Present: alert, cooperative, no acute distress - Respiratory Exam Present: non-labored - Cardiovascular Exam Present: pedal pulses intact - Extremities Exam Present: pulses intact. Absent: calf tenderness - Dressing Dressing: bloody drainage (Crumrod place in the mid to lower incision using sterile technique.) - Integumentary Exam Present: pink, warm, dry - Neurological Exam Present: no deficits - Psychiatric Exam Present: alert, normal affect - Labs Result Diagrams: 11/17/17 03:52 11/17/17 03:52 Abnormal lab results 11/17/17 11/17/17 Range/Units 03:52 03:52 Hgb 10.6 L D (12-16) GM/DL Hct 32.5 L D (36-46) % Chloride 108 H (98-107) MEQ/L Creatinine 0.5 L (0.7-1.2) mg/dL BUN/Creatinine Ratio 32 H (6-26) RATIO H & H 11/16/17 11/17/17 Range/Units 06:58 03:52 Hgb 14.4 10.6 L D (12-16) GM/DL Hct 44.0 32.5 L D (36-46) % Orthopedic Assessment and Plan (1) Primary osteoarthritis of right knee Status: Acute Assessment and Plan: S/P Rt TKA 11/16/17. Possible crack in the medial condyle noted on post op x-ray but us but not the radiologist. Will protect with a walker for 6 weeks but allow WBAT and unrestricted ROM. Miguel placed in the knee for bloody drainage. Will monitor for more bleeding after working with PT. Cont aspirin and SCDs for DVT coverage. Mobilize with PT / OT. WBAT and unrestricted ROM. Will plan to keep her another day to monitor wound drainage. Convert her to inpatient status. She also had a significant drop in her hgb from 14.4 to 10.6 which should be followed. Additionally, monitoring her pain and mobility with the xray findings which could represent a non-displaced medial condylar fracture. - Anticoagulation Therapy Anticoagulation: ASA 81 mg PO BID x6 weeks Hospital Course Summary Disclaimer: The visit summary below is not to be considered part of the above Progress Note.
[2017-11-17] MEDS: SIMVASTATIN 40 MG TABLET PO SCH (21:19)
[2017-11-17] MEDS: SENNOSIDES 8.6 MG TABLET PO SCH (21:21)
[2017-11-17] MEDS: OMEPRAZOLE 20 MG CAPSULE PO SCH (21:21)
[2017-11-17] MEDS: LOSARTAN 100 MG TABLET PO SCH (21:22)
[2017-11-18] MEDS: TRAMADOL 50 MG TABLET PO PRN ×2 (04:05→09:14)
[2017-11-18] MEDS: NOZIN NASAL SWAB NAS SCH ×2 (06:27→13:19)
[2017-11-18] MEDS: LEVOTHYROXINE 88 MCG TABLET PO SCH (06:27)
--- NOTE | 2017-11-18 07:59 | Orthopedic Progress Note ---
Date: Date: 11/18/17 Time: 075 Subjective/Severity of Illness: Doing well this AM. Denies much pain and slept well. Had a little drainage overnight and new dressing was applied this AM. No CP, cough, SOA, dizziness or other complaints. Orthopedic Exam Vital signs: Temperature 95.5 F L 11/17/17 11:57 Pulse Rate 59 L 11/17/17 11:57 Respiratory Rate 18 11/17/17 11:57 Blood Pressure 131/59 11/17/17 11:57 Pulse Oximetry 99 11/17/17 11:57 - Constitutional General Appearance: Present: alert, cooperative, no acute distress - Respiratory Exam Present: non-labored - Cardiovascular Exam Present: pedal pulses intact - Extremities Exam Present: pulses intact. Absent: calf tenderness - Dressing Dressing: bloody drainage (Miguel place in the mid to lower incision on .) - Integumentary Exam Present: pink, warm, dry - Neurological Exam Present: no deficits - Psychiatric Exam Present: alert, normal affect - Labs Result Diagrams: 11/18/17 03:50 11/18/17 03:50 Abnormal lab results 11/18/17 11/18/17 Range/Units 03:50 03:50 Hgb 10.1 L (12-16) GM/DL Hct 31.5 L (36-46) % Creatinine 0.6 L (0.7-1.2) mg/dL BUN/Creatinine Ratio 27 H (6-26) RATIO H & H 11/16/17 11/17/17 11/18/17 Range/Units 06:58 03:52 03:50 Hgb 14.4 10.6 L D 10.1 L (12-16) GM/DL Hct 44.0 32.5 L D 31.5 L (36-46) % Orthopedic Assessment and Plan (1) Primary osteoarthritis of right knee Status: Acute Assessment and Plan: S/P Rt TKA 11/16/17. Possible crack in the medial condyle noted on post op x-ray by ortho but not the radiologist. Will protect with a walker for 6 weeks but allow WBAT and unrestricted ROM. [place] placed in the knee 11/17 for bloody drainage. Will monitor for more bleeding after working with PT. Cont aspirin and SCDs for DVT coverage. Mobilize with PT / OT. WBAT and unrestricted ROM. Hgb dropped to 10.1 but pt not symptomatic. Remaining labs look good. - Anticoagulation Therapy Anticoagulation: ASA 81 mg PO BID x6 weeks Hospital Course Summary Disclaimer: The visit summary below is not to be considered part of the above Progress Note.
[2017-11-18] MEDS: POLYETHYL GLYCOL 3350 17gm PACKET PO SCH (08:28)
[2017-11-18] MEDS: GABAPENTIN 100 MG CAPSULE PO SCH (08:29)
[2017-11-18] MEDS: ACETAMINOPHEN 325 MG TABLET PO SCH ×2 (08:29→13:19)
[2017-11-18] MEDS: DOCUSATE SODIUM 100 MG CAPSULE PO SCH (08:29)
[2017-11-18] MEDS: NAPROXEN 220 MG TABLET PO SCH (08:30)
[2017-11-18] MEDS: ASPIRIN *EC* 81 MG TABLET PO SCH (08:32)
[2017-11-18 11:21] VITALS: BP 133/59; PULSE 64; RESP 18; TEMP 96.8; O2SAT 95
--- NOTE | 2017-11-18 13:19 | Extended Care Facility Orders ---
Admission Orders Admit to:: [facility] Allergies/Adverse Reactions: Allergies Sulfa (Sulfonamide Antibiotics) Allergy (Severe, Verified 11/16/17 07:04) Rash Penicillins Allergy (Mild, Verified 11/16/17 07:04) Rash Admitting Physician: Mor Michel MD Attending Physician: Mor Michel MD Anticiapted Length of Stay: 30 days or less Rehab Potential: good Rehab Prognosis: good Diet: 11/16/17 Lunch Regular Diet [DIET] Diet Modifications: May use Facility Protocol or Standing Orders: Yes May have flu vaccine: Yes Evaluations/Treatment: PT (weight bearing as tolerated), OT Usp Certification: I certify that SNF services are required to be given on an Inpatient basis because of the patients need for correction care on a continuing basis for the condition(s) for which he/she received inpatient hospital services prior to his/her transfer to the SNF. SNF inpatient care is necessary for the following reasons Indication for Usp: Postop Assessment Care - Additional Information In Event of Arrest: Start CPR,call 911,send patient to the ER Resident is Aware of Diagnosis: Yes Referrals: Mor Michel MD [Physician] - 12/08/17 1:00 pm Mali Kate APRN [Advanced Practice Nurse] - 11/22/17 2:30 pm Additional Orders: IS q4hr while awake. Keep dressing and incision dry. Do NOT remove dressing, notify Dr. Michel before removal. Do not let patient set in chair for >1 hr without elevating right knee, ice.
--- NOTE | 2017-11-18 13:21 | Discharge Summary ---
Orthopedic Discharge Info Date of admission: 11/17/17 12:57 Anticipated date of discharge: 11/18/17 Primary care physician: Adelaida Schaeffer MD Attending Physician: Mor Michel MD Consults: 11/16/17 06:54 Consult to Anesthesiology [CONS] Routine Reason For Exam: Preoperative Assessment 11/16/17 11:25 Case Management Consult [CONS] Routine Reason For Exam: Discharge Planning DME-Walker [CONS] Routine Height: 5 ft 4 in Weight: 64.4 kg Total Joint Outpatient Therapy [CONS] Routine Comment: Remove dressing in 2 weeks 11/17/17 12:37 Physician Consult [CONS] Routine Consulting Provider: David Torrez Reason For Exam: ICF/PT/OT Ordering Provider has Notified Supervisor Long Goods: Yes - Discharge Diagnosis (1) Primary osteoarthritis of right knee Status: Acute - Procedures Procedures: Procedures Excision of Sigmoid Colon, Via Natural or Artificial Opening Endoscopic, Diagnostic (05/17/17) Transfusion of Nonautologous Red Blood Cells into Peripheral Vein, Percutaneous Approach (05/26/17) - Laboratory Result Diagrams: 11/18/17 03:50 11/18/17 03:50 Laboratory: Abnormal lab results 11/18/17 11/18/17 Range/Units 03:50 03:50 Hgb 10.1 L (12-16) GM/DL Hct 31.5 L (36-46) % Creatinine 0.6 L (0.7-1.2) mg/dL BUN/Creatinine Ratio 27 H (6-26) RATIO H & H 11/16/17 11/17/17 11/18/17 Range/Units 06:58 03:52 03:50 Hgb 14.4 10.6 L D 10.1 L (12-16) GM/DL Hct 44.0 32.5 L D 31.5 L (36-46) % Orthopedic Discharge HPI - HPI Comments This patient was admitted for elective surgical tx of end stage degenerative joint disease that failed to respond to conservative treatment. Further details of this is found in the admission H&P. Orthopedic Hospital Course Hospital course: 11/18/17 13:19 After appropriate preoperative clearance and signing of operative consent, the patient was given IV antibiotics, according to orthopedic protocol. The patient was taken to the operating room and underwent elective Right total knee joint arthroplasty. Following surgery, antibiotics were discontinued less than 24 hours according to joint protocol. Appropriate anticoagulants were initiated and SCDs added for DVT prevention. The dressing was clean, dry, and intact. Pain control was obtained via multimodal approach. Bowel motivation addressed with scheduled and PRN medications. Early mobilization was initiated through PT services. Discharge arrangements made by a collaborative effort between the patient and Case Management. Patient was kept additional night to monitor drainage from surgical incision and hemoglobin. Follow-up is scheduled in 2-3 weeks. Discharge instructions given by orthopedic providers and nursing staff at discharge. Discharge condition was good. Care extended to > 2 midnight stays?: Yes Discharge Plan - Med Rec/Dispo Referrals/Follow Up: Mali Kate APRN [Advanced Practice Nurse] - 11/22/17 2:30 pm Mor Michel MD [Physician] - 12/08/17 1:00 pm Erika Instructions: [facility] Postop Instructions Prescriptions: New Acetaminophen [Tylenol] 650 mg PO QID tablet Bisacodyl Supp [Dulcolax] 10 mg RECTALLY DAILY supp Docusate Sodium [Colace] 100 mg PO BID capsule Naproxen [Aleve (Naproxen) 220 mg] 440 mg PO BID tablet PEG 3350 17gm PACKET [Miralax] 17 gm PO DAILY packet Tramadol [Ultram] 50 - 100 mg PO Q6H PRN #60 tab PRN Reason: Pain Aspirin *EC* [Ecotrin] 81 mg PO BID tablet Continue Losartan [Cozaar] 100 mg PO HS Gabapentin [Neurontin] 100 mg PO BID Simvastatin [Zocor] 40 mg PO HS Levothyroxine Tab [Synthroid] 88 mcg PO ACB Omeprazole [Prilosec] 20 mg PO HS ergocalciferol (vitamin D2) 50,000 unit capsule 50,000 unit PO DAILY #2 cap - Disposition 03 To SNU Not [facility] (SNF) - Dismissal Complete Discharge Instructions are:: Complete
[2017-11-18] MEDS ORDERED: BISACODYL 10 MG SUPPOSITORY RECTALLY SCH (20:00)
== END 2017-11-18 14:55 | DRG 470 ==
LOC: SUR 06:36 → NMC.PERIOP 06:39 → SRG 11:15
PROVIDERS: ADMIT Orthopaedic Surgery; ATTEND Orthopaedic Surgery